=== PATIENT | female | born 1965 | race Caucasian/White ===

== ENCOUNTER 2021-12-07 11:29 | Outpatient (REF) | payer OTHER, SELFPAY ==
--- NOTE | ~2021-12-07 | MM_ITS ---
EXAMINATION: MM SCREENING DIGITAL BREAST TOMOSYNTHESIS, BILATERAL CLINICAL INFORMATION: Screening. Asymptomatic. The lifetime risk of breast cancer based on the Tyrer-Cuzick Model is 13%. COMPARISON: Mammography: 04/14/2015, 04/04/2015, 03/27/2013; left breast ultrasound 04/14/2015 TECHNIQUE: Digital breast tomosynthesis is performed in both the craniocaudal and mediolateral oblique views along with computer-aided detection (CAD). Synthesized 2D images are generated from the tomosynthesis. FINDINGS: There are scattered areas of fibroglandular density (ACR BI-RADS breast composition Category b). There are no significant masses, abnormal calcifications, or other abnormalities. Parenchymal pattern is similar to prior studies. There is no developing density or architectural abnormality. The axilla and skin contours are unremarkable. MM/MM tomosynthesis screening BI IMPRESSION: No mammographic evidence of malignancy. ASSESSMENT: BI-RADS 1: Negative RECOMMENDATION: Routine annual mammography screening. This patient's information was entered into a reminder system with a target due date for their next mammogram.
== END 2021-12-07 11:30 | disposition home or self-care (01) ==
LOC: HO.MAMMO 11:29
PROVIDERS: PCP Internal Medicine; Visit Provider Internal Medicine
DX: Z12.31 Encounter for screening mammogram for malignant neoplasm of breast (principal)
CPT/HCPCS: 77063; 77067

== ENCOUNTER → 2022-04-06 14:45 | Outpatient (BNVA) | payer OTHER, SELFPAY | PROVIDERS: PCP Internal Medicine; Referring Provider Internal Medicine; Visit Provider Nurse Practitioner Family | DX: Z12.11 Encounter for screening for malignant neoplasm of colon (principal); R14.0 Abdominal distension (gaseous) | CPT/HCPCS: 99202 ==

== ENCOUNTER → 2022-04-09 14:29 | Outpatient (BNVA) | payer OTHER, SELFPAY | PROVIDERS: PCP Internal Medicine; Visit Provider Internal Medicine | DX: J44.9 Chronic obstructive pulmonary disease, unspecified (principal); F17.210 Nicotine dependence, cigarettes, uncomplicated | CPT/HCPCS: 99202 ==

== ENCOUNTER 2022-05-04 13:18 | Outpatient (REF) | payer OTHER, SELFPAY ==
--- NOTE | ~2022-05-04 | CT_ITS ---
EXAMINATION: CT CHEST SCREENING CLINICAL INFORMATION: Current smoker. 41 pack year history. COMPARISON: None. TECHNIQUE: Multidetector volumetric CT imaging of the chest is performed without contrast using low dose technique. Additional 2D coronal and sagittal reformatted images and axial 3D maximum intensity projection (MIP) images are generated on the CT workstation. This CT examination was performed using dose optimization techniques as appropriate, variously including the following: *Automated exposure control *Adjustment of mA and/or kV according to patient size (this includes techniques or standardized protocols for targeted exams where dose is matched to indication/reason for exam; i.e. extremities or head) *Use of iterative reconstruction technique DLP: 148 mGy-cm FINDINGS: LUNGS: Mild emphysema. 2 mm right upper lobe nodule axial image 193 series 5 and small clustered nodules for example axial image 211 series 5. This may represent endobronchial secretions. 2 mm left lower lobe nodules axial image 229 series 5 and also probably representing endobronchial secretions 2 mm calcified right middle lobe nodule axial image 291 series 5. Scarring or subsegmental atelectasis in the right middle lobe. No central endobronchial or endotracheal lesion. MEDIASTINUM: The mediastinum is normal. CORONARY ARTERY CALCIFICATION: Mild PLEURA: There is no pleural effusion. No pleural mass or thickening. AXILLA: No lymphadenopathy. UPPER ABDOMEN: Calcifications in the spleen suggestive of old granulomatous disease. OSSEOUS STRUCTURES: Mild degenerative changes of the spine. CT/CT lung screening IMPRESSION: Mild emphysema. Small pulmonary nodules. ASSESSMENT: Lung-RADS category 2: Benign RECOMMENDATION: Annual low-dose chest CT follow-up recommended.
--- NOTE | 2022-05-04 15:02 | PFT_ITS ---
FLOWS: FEV1 50% of predicted at 1.34 L. FVC 73% of predicted at 2.52 L. FEV1 to FVC ratio of 0.53. No bronchodilator response except in small to medium airways. LUNG VOLUMES: Total lung capacity 90% of predicted at 4.55 L. Residual volume 115% of predicted at 2.20 L. Slow vital capacity 74% of predicted at 2.35 L. Expiratory reserve volume 29% of predicted at 0.38 L. Diffusion capacity is moderately decreased, diffusion capacity adjust to being mildly decreased after correction for alveolar ventilation. IMPRESSION: Moderate to severe obstructive ventilatory defect with no bronchodilator response except in small to medium airways. Decreased diffusion capacity suggests emphysema. Orestes Sofia MD AP/MODL / [id number]
== END 2022-05-04 13:19 | disposition home or self-care (01) ==
LOC: HO.CT 13:18
PROVIDERS: PCP Internal Medicine; Visit Provider Physician Assistant Medical
DX: Z12.2 Encounter for screening for malignant neoplasm of respiratory organs (principal); J44.9 Chronic obstructive pulmonary disease, unspecified; F17.210 Nicotine dependence, cigarettes, uncomplicated
CPT/HCPCS: 71271; 94060; 94727; 94729; G0296

== ENCOUNTER 2023-11-12 16:10 | Outpatient (REF) | payer MEDICAID, SELFPAY ==
[2023-11-12 17:55] LABS: MANUAL DIFF FLAG NO
[2023-11-12 18:25] LABS: Basophils Percent Auto 0.7 % (0-2); Eosinophils Absolute Auto 0.3 X10*3/uL (0.0-0.4); Eosinophils Percent Auto 4.9 % (0-4); Hematocrit 42.4 % (37.0-47.0); Imm Gran Abs Auto 0.01 X10*3/uL (0.00-0.03); Imm Gran Pct Auto 0.2 % (0.0-0.4); Lymphocytes Absolute Auto 2.5 X10*3/uL (1.2-4.9); Lymphocytes Percent Auto 42.6 % (20-40); Mean Corpuscular Hemoglobin 29.1 pg (27.0-33.0); Mean Corpuscular Volume 88.1 fL (80.0-98.0); Mean Platelet Volume 10.1 fL (9.4-12.3); Monocytes Absolute Auto 0.8 X10*3/uL (0.1-1.2); Monocytes Percent Auto 12.8 % (2-11); Neutrophils Absolute Auto 2.3 x10*3/uL (2.0-8.3); Neutrophils Percent Auto 38.8 % (45-73); Platelet Count 291 X10*3/uL (160-400); Red Blood Count 4.81 X10*6/uL (4.20-5.50); Red Cell Distribution Width 15.5 % (11.0-16.0); White Blood Count 5.9 X10*3/uL (4.8-10.8)
[2023-11-12 18:54] LABS: Alanine Aminotransferase 34 U/L (0-31); Albumin Level 4.3 g/dL (3.5-5.0); Alkaline Phosphatase 98 U/L (39-117); Anion Gap 12 (12-20); Aspartate Amino Transferase 29 U/L (5-31); Bilirubin Total 0.2 mg/dL (0.0-1.0); Blood Urea Nitrogen 15 mg/dL (9-16); Calcium 9.8 mg/dL (8.4-10.2); Carbon Dioxide 29 mmol/L (22-29); Chloride 103 mmol/L (96-108); Estimated Glomerular Filt Rate > 60; Glucose Random 101 mg/dL (60-115); Potassium 4.2 mmol/L (3.3-5.1); Sodium 140 mmol/L (135-145); Total Protein 7.3 g/dL (6.5-8.0)
[2023-11-12 19:10] LABS: TSH reflex Free T4 36.82 uIU/mL (0.32-4.0); Vitamin D 25-OH Total 38.3 ng/mL (>30)
[2023-11-12 20:20] LABS: Free T4 (Free Thyroxine) 0.77 ng/dL (0.71-1.85)
[2023-11-13 07:40] LABS: Estimated Average Glucose 111 mg/dL; Hemoglobin A1c % 5.5 % (<6.0)
== END 2023-11-12 16:11 | disposition home or self-care (01) ==
LOC: HO.HHCL 16:10
PROVIDERS: Visit Provider Nurse Practitioner Family
DX: E03.9 Hypothyroidism, unspecified (principal); R14.0 Abdominal distension (gaseous)
CPT/HCPCS: 36415; 80053; 82306; 83036; 84439; 84443; 85025

== ENCOUNTER 2023-12-26 09:00 | Outpatient (REF) | payer MEDICAID, SELFPAY ==
--- NOTE | ~2023-12-26 | CT_ITS ---
EXAMINATION: CT LOW-DOSE SCREENING CHEST WITHOUT CONTRAST CLINICAL INFORMATION: Nicotine dependence, cigarettes, uncomplicated. 41 pack years; current smoker; 77 kg; 58-year-old female COMPARISON: Low-dose CT lung screening 05-24. TECHNIQUE: Multidetector volumetric CT imaging of the chest is performed on a Siemens SOMATOM Definition scanner without contrast using low dose technique. Additional 2D coronal and sagittal reformatted images and axial 3D maximum intensity projection (MIP) images are generated on the CT workstation. This CT examination was performed using dose optimization techniques as appropriate, variously including the following: *Automated exposure control *Adjustment of mA and/or kV according to patient size (this includes techniques or standardized protocols for targeted exams where dose is matched to indication/reason for exam; i.e. extremities or head) *Use of iterative reconstruction technique TOTAL EXAM DLP: 46 mGy-cm. Please note, due to [facility] [employer] contractual, systems, and staffing issues, an [facility] radiologist was not available for review and dictation of this case until 02/06/2024. FINDINGS: PULMONARY NODULES: -Once again, there are scattered 2-3 mm pulmonary nodules which are stable. -There are no new or enlarging pulmonary nodules. LUNGS: -There is mild centrilobular emphysema with upper lobe predominance. -Lungs are clear without consolidations or abnormal groundglass opacities. -Mild linear scarring is noted in the medial left lower lobe, lingula, and right middle lobe. -Small right apical bleb. -There is diffuse small airway thickening suggestive of chronic bronchitis. The trachea and central airways are normal. -Previously seen clustered centrilobular nodules have resolved and were inflammatory in nature. -No evidence of interstitial lung disease. -No pleural effusion or mass. MEDIASTINUM: -Normal thyroid. -No abnormal mediastinal or hilar lymphadenopathy. -Aorta is mildly calcified but normal in caliber and course. No aneurysm. -Main pulmonary artery is normal. -Heart size is normal. No pericardial effusion. -There is a small type I hiatus hernia. -Esophagus is otherwise normal. CORONARY ARTERY CALCIFICATION: Moderate to heavy LAD calcification, and mild RCA and circumflex calcifications. CHEST WALL/AXILLA: No abnormal lymphadenopathy or masses. UPPER ABDOMEN: -Numerous granulomata are present in the spleen. -Type I hiatus hernia. -Remainder of the imaged upper abdominal contents are normal allowing for low-dose technique and no contrast. OSSEOUS STRUCTURES: -No suspicious lytic or blastic bone lesions. There are mild spinal degenerative changes. CT/CT lung screening IMPRESSION: 1. Mild centrilobular emphysema. No active lung disease. 2. Stable scattered 2 to 3 mm pulmonary nodules. No suspicious, new, or enlarging pulmonary nodules. Chance of malignancy less than 1%. 3. Diffuse small airway thickening suggesting chronic bronchitis. 4. Small hiatus hernia, type I. 5. Additional ancillary findings as discussed in the body of the report. ASSESSMENT: 1. Lung-RADS Category 2: Benign appearance or behavior of nodules. 2. Lung-RADS Category S: None. RECOMMENDATION: Continued routine annual low-dose CT lung screening in 1 year is recommended. An order for CT CHEST LOW DOSE CANCER SCREENING ([id number]) can be placed. Electronically signed by: Eder Jones MD 02/06/2024 10:07 AM EDT
[2023-12-26 12:04] LABS: Thyroid Stimulating Hormone 2.11 uIU/mL (0.32-4.0)
== END 2023-12-26 09:01 | disposition home or self-care (01) ==
LOC: HO.CT 09:00
PROVIDERS: Nurse Practitioner Family; Visit Provider Physician Assistant Medical
DX: Z12.2 Encounter for screening for malignant neoplasm of respiratory organs (principal); F17.210 Nicotine dependence, cigarettes, uncomplicated; E03.9 Hypothyroidism, unspecified
CPT/HCPCS: 36415; 71271; 84443

== ENCOUNTER → 2023-12-26 09:02 | Outpatient (BNV) | payer MEDICAID, SELFPAY | PROVIDERS: Visit Provider Radiology Diagnostic Radiology | DX: Z12.2 Encounter for screening for malignant neoplasm of respiratory organs (principal); F17.210 Nicotine dependence, cigarettes, uncomplicated; E03.9 Hypothyroidism, unspecified | CPT/HCPCS: 71271 ==

== ENCOUNTER 2024-03-03 11:33 | Outpatient (REF) | payer MEDICAID, SELFPAY ==
[2024-03-03 13:46] LABS: TSH reflex Free T4 0.09 uIU/mL (0.32-4.0)
[2024-03-03 14:32] LABS: Free T4 (Free Thyroxine) 1.08 ng/dL (0.71-1.85)
[2024-03-06 00:38] LABS: HPV mRNA E6/E7 Not Detected (Not Detected)
== END 2024-03-03 11:34 | disposition home or self-care (01) ==
LOC: HO.HHCL 11:33
PROVIDERS: Visit Provider Internal Medicine
DX: Z01.419 Encounter for gynecological examination (general) (routine) without abnormal findings (principal); E03.9 Hypothyroidism, unspecified
CPT/HCPCS: 36415; 84439; 84443; 87624; 88175

== ENCOUNTER 2024-04-27 14:39 | Outpatient (REF) | payer MEDICAID, SELFPAY ==
[2024-04-27 16:59] LABS: TSH reflex Free T4 11.91 uIU/mL (0.32-4.0)
[2024-04-27 18:20] LABS: Free T4 (Free Thyroxine) 1.08 ng/dL (0.71-1.85)
== END 2024-04-27 14:40 | disposition home or self-care (01) ==
LOC: HO.HHCL 14:39
PROVIDERS: Visit Provider Internal Medicine
DX: E03.9 Hypothyroidism, unspecified (principal)
CPT/HCPCS: 36415; 84439; 84443

== ENCOUNTER 2024-06-26 11:50 | Outpatient (REF) | payer MEDICAID, SELFPAY ==
--- OUTSIDE RECORDS SUMMARY | 2024-06-26 13:59 | XMS_ITS | Encounter Summary ---
Author Organization [employer] Address [address] [facility] 7t [place] [address] Care Team Providers Care Glazier Metal Furniture Name Role Phone Zhanna Kinney MD Primary Care Provide r Reason for Visit * Reason Onset Date Comments Med Refill 05/06/2023 Encounter Details Date Type Department Care Team ([facility] st Contact Info) Description 05/06/2023 Telephone [facility] MEDICINE [address] [place], [place] [phone] Zhanna Kinney MD [address] [place], [place] [phone] Med Refill Social History Tobacco Use Types Packs/Day Years Used Date Smoking Tobacco: Every Day Cigarettes Smokeless Tobacco: Never Alcohol Use Standard Drinks/Week Comments Never 0 (1 standard drink = 0.6 oz pur e alcohol) Housing Stability Answer Date Recorded What is your housing situation today? I have michelle pires 03/21/[address] you li ve. Do you have problems with any of the following? None of the above 03/21/2023 Food Insecurity Answer Date Recorded Within the past 12 months, y ou worried that your food would run out before you got money to buy more: Never True 03/21/2023 Within the past 12 months,th e food you bought just didn't last and you didn't have enough money to get more: Never True Transportation Answer Date Recorded In the past 12 months, has l ack of transportation kept you from medical appts, meetings, work or from getting things needed for daily living? No 03/21/2023 Utilities Answer Date Recorded In the past 12 months, has t he electric, gas, oil or water company threatened to shut off services in your home? No 03/21/2023 Comments Unknown Sex and Gender Information Value Date Recorded Sex Assigned at Female 04/02/2022 10:21 AM EDT Legal Sex Female 10:21 AM EDT Gender Identity Female 04/02/2022 10:21 AM EDT Sexual Orientation Straight 04/02/2022 10 :21 AM EDT documented as of this encounter Miscellaneous Notes * Telephone Encounter - Tasha Clemons LPN - 05/06/2023 3:56 PM EST Medication pended to provider. * Telephone Encounter - Edwina Thakkar - 05/06/2023 3:49 PM EST Tc from pt requesting medication refill on cholecalciferol (Vitamin D-3) 50 MCG (1999) capsule [email or web address] [address] documented in this encounter Plan of Treatment Not on file documented as of this encounter Visit Diagnoses Not on filedocumented in this encounter Care Teams [employer] Furniture Relationship Specialty Start Date End Date Zhanna Kinney MD [address] [place] [address] PCP - General Family Medicine 02/12/18 documented as of this encounter
--- OUTSIDE RECORDS SUMMARY | 2024-06-26 13:59 | XMS_ITS | Encounter Summary ---
Author Organization [employer] Address [address] [facility] 7t [place] [address] Care Team Providers Care Conference Center Coordinator Name Role Phone Zhanna Kinney MD Primary Care Provide r Reason for Visit * Reason Onset Date Comments Med Refill 09/10/2023 Encounter Details Date Type Department Care Team ([facility] st Contact Info) Description 09/10/2023 Telephone [facility] MEDICINE [address] [place], [place] [phone] Zhanna Kinney MD [address] [place], [place] [phone] Med Refill Social History Tobacco Use Types [...] Telephone Encounter - Tasha Clemons LPN - 09/10/2023 2:29 PM EDT Medications pended to PCP. * Telephone Encounter - Kay Walls - 09/10/2023 2:11 PM EDT TC from pt requesting medication refill. Medications needing refill : levothyroxine (Synthroid, Levoxyl) 88 MCG tablet cholecalciferol (Vitamin D-3) 50 MCG (1999) capsule albuterol (2.5 MG/3ML) 0.083% nebulizer solution lactulose (Chronulac) 10 GM/15ML solution To be sent to: [facility] documented in this encounter Plan of Treatment Not on file documented as of this encounter Visit Diagnoses Not on filedocumented in this encounter Care Teams Conference Center Coordinator Relationship Specialty Start Date End Date Zhanna Kinney MD [address] [place] [id number] PCP - General Family Medicine 02/12/18 documented as of this encounter
--- OUTSIDE RECORDS SUMMARY | 2024-06-26 13:59 | XMS_ITS | Encounter Summary ---
Author Organization [employer] Address [address] [facility] 7t [place] [address] Care Team Providers Care As400 Consultant Name Role Phone Zhanna Kinney MD Primary Care Provide r Reason for Visit * Reason Comments Med Refill Encounter Details Date Type Department Care Team (Late st Contact Info) Description 06/18/2024 Refill [facility] MEDICINE [address] [place], [place] [phone] Zhanna Kinney MD [address] [place], [place] [phone] Moderate chronic obstructive pulmonary disease (CMS/HCC) Social History Tobacco Use Types Packs/Day Years Used Date Smoking Tobacco: Every Day Cigarettes Smokeless Tobacco: Never Alcohol Use Standard Drinks/Week Comments Yes 0 (1 standard drink = 0.6 oz pur e alcohol) 2x week Housing Stability Answer Date Recorded What is your housing situation today? Not on jose e 11/12/[address] you li ve. Do you have problems with any of the following? Mold 11/12/2023 Food Insecurity Answer Date Recorded Within the past 12 months, y ou worried that your food would run out before you got money to buy more: Never True 11/12/2023 Within the past 12 months,th e food you bought just didn't last and you didn't have enough money to get more: Never True 04/2024 Transportation Answer Date Recorded In the past 12 months, has l ack of transportation kept you from medical appts, meetings, work or from getting things needed for daily living? No 11/12/2023 Utilities Answer Date Recorded In the past 12 months, has t he electric, gas, oil or water [employer] threatened to shut off services in your home? No 11/12/2023 Comments No Sex and Gender Information Value Date Recorded Sex Assigned at Female 04/02/2022 10:21 AM EDT Legal Sex Female 10:21 AM EDT Gender Identity Female 04/02/2022 10:21 AM EDT Sexual Orientation Straight 04/02/2022 10 :21 AM EDT documented as of this encounter Plan of Treatment Not on file documented as of this encounter Visit Diagnoses Diagnosis Moderate chronic obstructive pulmonary disease (CMS/HCC) Chronic airway obstruction, not elsewhere classified documented in this encounter Care Teams As400 Consultant Relationship Specialty Start Date End Date Zhanna Kinney MD [address] [place] [id number] PCP - General Family Medicine 02/12/18 documented as of this encounter
--- OUTSIDE RECORDS SUMMARY | 2024-06-26 14:00 | XMS_ITS | Encounter Summary ---
Author Organization [employer] Address [address] [place] [address] [place] [address] Care Team Providers Care Casing Man Name Role Phone Zhanna Kinney MD Primary Care Provide r Reason for Visit * Reason Comments Med Refill Encounter Details Date Type Department Care Team (Late st Contact Info) Description 12/10/2022 Refill [facility] MEDICINE [address] [place], [place] [phone] Zhanna Kinney MD [address] [place], [place] [phone] Social History Tobacco Use Types Packs/Day Years Used Date Smoking Tobacco: Every Day Cigarettes Smokeless Tobacco: Never Alcohol Use Standard Drinks/Week Comments Never 0 (1 standard drink = 0.6 oz pur e alcohol) Comments Unknown Sex and Gender Information Value [...] on filedocumented in this encounter Care Teams Casing Man Relationship Specialty Start Date End Date Zhanna Kinney MD [address] [place], [place] [phone] PCP - General Family Medicine 02/12/18 documented as of this encounter
--- OUTSIDE RECORDS SUMMARY | 2024-06-26 14:00 | XMS_ITS | Encounter Summary ---
Author Organization [employer] Address [address] [place] [address] 7[address] [place] [address] Care Team Providers Care Technical Producer Name Role Phone Zhanna Kinney MD Primary Care Provide r Reason for Visit * Reason Comments Med Refill Encounter Details Date Type Department Care Team (Late st Contact Info) Description 12/06/2022 Refill [facility] MEDICINE [address] [place], [place] [phone] Zhanna Kinney MD [address] [place], [place] [phone] Social History Tobacco Use Types Packs/Day Years [...] on filedocumented in this encounter Care Teams Technical Producer Relationship Specialty Start Date End Date Zhanna Kinney MD [address] [place], [place] [phone] PCP - General Family Medicine 02/12/18 documented as of this encounter
--- OUTSIDE RECORDS SUMMARY | 2024-06-26 14:00 | XMS_ITS | Encounter Summary ---
Author Organization [employer] Address [address] [facility] 7t [place] [address] Care Team Providers Care Director Of Design Name Role Phone Zhanna Kinney MD Primary Care Provide r Reason for Visit * Reason Onset Date Comments Referral 05/28/2024 Encounter Details Date Type Department Care Team ([facility] st Contact Info) Description 05/28/2024 Telephone [facility] MEDICINE [address] [place], [place] [phone] Zhanna Kinney MD [address] [place], [place] [phone] Referral Social History Tobacco Use Types Packs/Day Years [...] encounter Miscellaneous Notes * Telephone Encounter - Tanika Rowe RN - 06/04/2024 3:12 PM EST TC placed to patient [phone] in regards to below message. Patient verbalized understanding anddid not have any further questions. Patient to f/u PRN. * Telephone Encounter - Tanika Rowe RN - 06/04/2024 1:07 PM EST TC placed to patient [phone] in regards to below message. Patient verbalized understanding. Patient reports she was also referred to a photo lab manager in the [place] location but would like that referral to be switched to the [facility] location as well. Please review. Thank you! * Telephone Encounter - Abena Roland - 05/29/2024 10:36 AM EST Tc from pt stating they attempted to contact Dr. Ramírez - [place] office however they are permanently closed and will need to be referred else where, preferably ( [facility] area ). Please contact at [phone] * Telephone Encounter - Tanika Rowe RN - 05/28/2024 4:36 PM EST TC placed to patient [phone] to inform patient of below message. Patient verbalized understanding. Patient to f/u PRN. * Telephone Encounter - Leann Rashid - 05/28/2024 3:22 PM EST Tc from pt requesting a referral to visit Thyroid specialist as she inform pcp inform her she will be sent to one. No preference to any locations. documented in this encounter Plan of Treatment Not on file documented as of this encounter Visit Diagnoses Not on filedocumented in this encounter Care Teams Director Of Design Relationship Specialty Start Date End Date Zhanna Kinney MD [address] [place] [address] PCP - General Family Medicine 02/12/18 documented as of this encounter
--- OUTSIDE RECORDS SUMMARY | 2024-06-26 14:00 | XMS_ITS | Encounter Summary ---
Author Organization [employer] Address [address] [facility] 7t [place] [address] Care Team Providers Care Sand Cutter Name Role Phone Zhanna Kinney MD Primary Care Provide r Encounter Details Date Type Department Care Team (Late st Contact Info) Description 01/01/2023 Orders Only [facility] MEDICINE [address] [place], [place] [phone] Lupe Benites LPN Social History Tobacco Use Types Packs/Day Years [...] on file documented as of this encounter Procedures Procedure Name Priority Date/Time Associated Diagnosis Comments T4, FREE Routine 11/12/2023 4:11 PM EDT documented in this encounter Results * T4, Free (11/12/2023 4:11 PM EDT) Free T4 (Free Thyroxine) 0.77 0.71 - 1.85 ng/dL [facility] 11/12/2023 4:11 PM EDT 11/12/2023 5:50 PM EDT us Ileana Cevallos [employer] BLOOD ORDERABLES Final Resul t [facility] [address] [place] [phone] documented in this encounter Visit Diagnoses Not on filedocumented in this encounter Care Teams Sand Cutter Relationship Specialty Start Date End Date Zhanna Kinney MD [address] [place] [address] PCP - General Family Medicine 02/12/18 documented as of this encounter
--- OUTSIDE RECORDS SUMMARY | 2024-06-26 14:00 | XMS_ITS | Encounter Summary ---
Author Organization [employer] Address [address] [place] [address] [address]t [place] [address] Care Team Providers Care Cashier Credit Name Role Phone Zhanna Kinney MD Primary Care Provide r Reason for Visit * Reason Comments Med Refill Encounter Details Date Type Department Care Team (Late st Contact Info) Description 03/05/2023 Refill [facility] MEDICINE [address] [place], [place] [phone] Zhanna Kinney MD [address] [place], [place] [phone] Social History Tobacco Use Types Packs/Day Years [...] on filedocumented in this encounter Care Teams Cashier Credit Relationship Specialty Start Date End Date Zhanna Kinney MD [address] [place], [place] [phone] PCP - General Family Medicine 02/12/18 documented as of this encounter
--- OUTSIDE RECORDS SUMMARY | 2024-06-26 14:00 | XMS_ITS | Encounter Summary ---
Author Organization [employer] Address [address] [facility] 7t [place] [address] Care Team Providers Care Cycle Repairer Name Role Phone Nighat Kinney MD Primary Care Provide r Reason for Visit * Reason Onset Date Comments Results 05/04/2024 Encounter Details Date Type Department Care Team ([facility] st Contact Info) Description 05/04/2024 Telephone [facility] MEDICINE [address] [place], [place] [phone] Nighat Kinney MD [address] [place], [place] [phone] Results Social History Tobacco Use Types Packs/Day Years [...] Telephone Encounter - Tanika Rowe RN - 06/16/2024 9:46 AM EST TC placed to patient [phone] to remind patient to return to the lab for TSH BW. Patient verbalized understanding and reports she will come to the lab tomorrow. Patient to be contacted with results when available. Patient to f/u PRN. * Telephone Encounter - Quiana Gomes RN - 05/05/2024 10:25 AM EST Please let patient know I reviewed her labs her TSH is high again, I went up on her levothyroxine again and I put a referral in for endocrinology, she should repeat her TSH in 6 weeks TC placed to pt to discuss the message above pt will parts picker new dosage of medication today. 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 Will send message to PA specialists as referral is still pending Due to pt having HSN she will have to pay out of pocket, Pt will have to call dr. Joiner [phone] and see what the out of pocket expense would be. Canceling referral, thank you. TC placed to pt she will come in to speak to insurance enrollment to change insurance as she will not drive to [place] for appointments will send to PCP as an FYI pt to contact [facility] when insurance is changed to proceed with new referral. * Telephone Encounter - Jasmin Espinosa RN - 05/04/2024 4:40 PM EST Please see below patient called for lab results patients TSH is now 11.91. Please review and advise. * Addendum Note - Nighat Bonilla MD - 05/04/2024 4:36 PM ESTAddended by: NIGHAT TAYLOR on: 05/04/2024 04:36 PM Modules accepted: Orders * Telephone Encounter - Tiago Hurtado RN - 05/04/2024 11:23 AM EST Please see below patient called for lab results patients TSH is now 11.91. Please review and advise. * Telephone Encounter - Lam Velázquez - 05/04/2024 9:40 AM EST TC from pt requesting call back regarding Results. Type of results: Labs Date when done: 04/27/24 Facility: [facility] Labs documented in this encounter Plan of Treatment Not on file documented as of this encounter Visit Diagnoses Diagnosis Acquired hypothyroidism- Primary Unspecified hypothyroidism documented in this encounter Care Teams Cycle Repairer Relationship Specialty Start Date End Date Nighat Kinney MD [address] [place] [address] PCP - General Family Medicine 02/12/18 documented as of this encounter
--- OUTSIDE RECORDS SUMMARY | 2024-06-26 14:00 | XMS_ITS | Encounter Summary ---
Author Organization [employer] Address [address] [place] [address] 7[address] [place] [address] Care Team Providers Care Store Product Demonstrator Name Role Phone Zhanna Kinney MD Primary Care Provide r Reason for Visit * Reason Onset Date Comments Med Refill 10/09/2022 Encounter Details Date Type Department Care Team (Late st Contact Info) Description 10/09/2022 Telephone [facility] MEDICINE [address] [place], [place] [phone] Zhanna Kinney MD [address], [place] [phone] Med Refill Social History Tobacco Use Types [...] Telephone Encounter - Tasha Clemons LPN - 10/09/2022 2:06 PM EDT Medication pended to PCP awaiting approval. * Telephone Encounter - Kay Walls - 10/09/2022 1:51 PM EDT Tc from pt requesting med refill for medication levothyroxine (Synthroid, Levoxyl) 88 MCG tablet. documented in this encounter Plan of Treatment Not on file documented as of this encounter Visit Diagnoses Not on filedocumented in this encounter Care Teams Store Product Demonstrator Relationship Specialty Start Date End Date Zhanna Kinney MD [address] [place] [phone] PCP - General Family Medicine 02/12/18 documented as of this encounter
--- OUTSIDE RECORDS SUMMARY | 2024-06-26 14:00 | XMS_ITS | Clinical Summary ---
Author Organization [employer] Address [address] [place] [address] 7[address] [place] [address] Care Team Providers Care Etiology Teacher Name Role Phone Zhanna Kinney MD Primary Care Provide r Allergies No known active allergies Medications buPROPion SR (Wellbutrin SR) 150 MG 12 hr tablet 022 Active Fluticasone-Salme terol 500-50 MCG/ACT aerosol powder 022 Active azithromycin (Zithromax Z-Sagar) 250 MG tabletIndications :COPD exacerbation (CMS/HCC) Take 2 tablets (500 mg) in a single loading dose on day 1, followed by 250 mg once daily on days 2 to 5 6 tablet 023 Active loratadine (Claritin) 10 MG tabletIndications :Allergy, sequela Take 1 tablet (10 mg) by mouth in the morning. 90 tablet 023 Active lactulose (Enulose) 10 GM/15ML solution oral solution TAKE 15 ML BY MOUTH ONCE DAILY FOR CONSTIPATION 450 mL 1 023 Active nicotine (Nicoderm CQ) 21 MG/24HR patchIndications: Nicotine dependence, uncomplicated, unspecified nicotine product type Place 1 patch on the skin 1 (one) time each day at the same time. 30 patch 024 Active fluticasone furoate (Arnuity Ellipta) 100 MCG/ACT inhalerIndication s:Severe persistent asthma, unspecified whether complicated Inhale 1 puff Once per day. Rinse mouth with water after use to reduce aftertaste and incidence of candidiasis. Do not swallow. 1 each 024 2024 Active albuterol (Ventolin HFA) 108 (90 Base) MCG/ACT inhalerIndication s:Moderate chronic obstructive pulmonary disease (CMS/HCC) INHALE 2 PUFFS BY MOUTH EVERY 6 HOURS NEEDED FOR WHEEZING 18 g 3 024 Active ipratropium-albut sandro (Combivent Respimat) 20-100 MCG/ACT inhalerIndication s:Moderate chronic obstructive pulmonary disease (CMS/HCC) Inhale 1 puff in the morning, at noon, in the evening, and at bedtime. 4 g 5 024 Active cholecalciferol VITAMIN D (Vitamin D-3) 50 MCG (2000 UT) capsule TAKE ONE CAPSULE BY MOUTH ONCE DAILY IN THE MORNING 90 capsule 1 024 Active lactulose (Chronulac) 10 GM/15ML solution TAKE 15 ML BY MOUTH ONCE DAILY FOR CONSTIPATION 450 mL 1 024 Active tiotropium (Spiriva HandiHaler) 18 MCG inhalation capsule INHALE ONE (1) CAPSULE VIA HANDIHALER FOR INHALTION ONCE A DAY 30 capsule 5 024 Active cetirizine (ZyrTEC) 10 MG tabletIndications :Allergic reaction, initial encounter TAKE 1 TABLET (10 MG) BY MOUTH ONCE PER DAY. 90 tablet 024 2024 Active levothyroxine (Synthroid, Levoxyl) 100 MCG tabletIndications :Acquired hypothyroidism TAKE 1 TABLET BY MOUTH EVERY MORNING BEFORE BREAKFAST 90 tablet 024 Active fluticasone furoate (Arnuity Ellipta) 200 MCG/ACT inhalerIndication s:Moderate chronic obstructive pulmonary disease (CMS/HCC) INHALE 1 PUFF BY MOUTH ONCE A DAY. RINSE MOUTH WITH WATER AFTER USE TO REDUCE AFTERTASTE AND INCIDENCE OF CANDIDIASIS. DO NOT SWALLOW. 1 each 3 025 Active albuterol (2.5 MG/3ML) 0.083% nebulizer solutionIndicatio ns:Moderate chronic obstructive pulmonary disease (CMS/HCC) INHALE ONE (1) AMPULE (3ML) USING A NEBULIZER EVERY 8 HOURS IF NEEDED FOR WHEEZING 90 mL 3 025 Active fluticasone furoate (Arnuity Ellipta) 200 MCG/ACT inhalerIndication s:Moderate chronic obstructive pulmonary disease (CMS/HCC) INHALE 1 PUFF BY MOUTH ONCE A DAY. RINSE MOUTH WITH WATER AFTER USE TO REDUCE AFTERTASTE AND INCIDENCE OF CANDIDIASIS. DO NOT SWALLOW. 30 each 3 024 2024 Discontinued albuterol (2.5 MG/3ML) 0.083% nebulizer solutionIndicatio ns:Moderate chronic obstructive pulmonary disease (CMS/HCC) INHALE ONE (1) AMPULE (3ML) USING A NEBULIZER EVERY 8 HOURS IF NEEDED FOR WHEEZING 90 mL 3 024 2024 Discontinued Active Problems Problem Noted Date Diagnosed Date Encounter for cervical Pap smear with pelvic exa m 03/03/2024 Assessment & Plan (03/03/2024 12:22 PM EDT): PAP and pelvic exam done, patient will be contacted with results Allergic reaction 01/03/2024 Colon cancer screening 01/03/2024 Vitamin D deficiency 11/12/2023 Bloating 11/12/2023 Facial swelling 11/12/2023 Severe persistent asthma 11/12/2023 Assessment & Plan (11/17/2023 2:07 PM EDT): Inhaler rx updated, Acquired hypothyroidism 06/06/2022 Assessment & Plan (03/03/2024 12:22 PM EDT): TSH will be check patient will be contacted with results Assessment & Plan (11/17/2023 2:07 PM EDT): Symptoms consistent with hypothyroid, check labs as ordered below Familial cancer of breast 03/04/2015 Moderate chronic obstructive pulmonary disease 1 Nicotine dependence 03/04/2015 Assessment & Plan (11/17/2023 2:07 PM EDT): Plan to trial nicotine patch Encounters Date Type Department Care Team Description 06/18/2024 Refill [facility] MEDICINE [address] [place] [address] Zhanna Kinney MD Moderate chronic obstructive pulmonary disease (CMS/HCC) 05/28/2024 Telephone [facility] MEDICINE [address] [place] [address] Zhanna Kinney MD Referral 05/18/2024 Telephone [facility] MEDICINE [address] [place] [address] Zhanna Kinney MD Referral 05/18/2024 Refill [facility] MEDICINE [address] [place] [address] Zhanna Kinney MD Acquired hypothyroidism 05/05/2024 Refill [facility] MED[facility]INE [address] [place] [address] Zhanna Kinney MD Allergic reaction, initial encounter 05/04/2024 Telephone [facility] MEDICINE [address] [place] [address] Jasmin Espinosa RN 05/04/2024 Orders Only [facility] MEDICINE [address] [place] [address] Zhanna Kinney MD Acquired hypothyroidism (Primary Dx) 05/04/2024 Telephone [facility] MEDICINE [address] [place] [address] Zhanna Kinney MD Results 04/29/2024 Orders Only [facility] MEDICINE [address] [place] [address] Zhanna Kinney MD Acquired hypothyroidism (Primary Dx) 04/29/2024 Orders Only [facility] MEDICINE [address] [place] [address] Zhanna Kinney MD 04/27/2024 Orders Only [facility] MED[facility]INE [address] [place] [address] Zhanna Kinney MD 04/24/2024 Refill [facility] MED[facility]INE [address] [place] [address] Zhanna Kinney MD 03/27/2024 Refill [facility] [address] [place] [address] Zhanna Kinney MD from Last 3 Months Immunizations Name Administration Dates Next Due Pneumococcal Conjugate PCV 20 01/03/2024 TD (adult), 2 Lf tetanus tox oid, preservative free, adsorbed 06/03/2002 Social History Tobacco Use Types Packs/Day Years Used Date Smoking Tobacco: Every Day Cigarettes Smokeless Tobacco: Never Tobacco Cessation:Ready to Q uit: Not Asked; Counseling Given: Not Answered Alcohol Use Standard Drinks/Week Comments Yes 0 [...] t he electric, gas, oil or water [employer] threatened to shut off services in your home? No 11/12/2023 Comments No Sex and Gender Information Value Date Recorded Sex Assigned at Female 04/02/2022 10:21 AM EDT Legal Sex Female 10:21 AM EDT Gender Identity Female 04/02/2022 10:21 AM EDT Sexual Orientation Straight 04/02/2022 10 :21 AM EDT Last Filed Vital Signs Vital Sign Reading Time Taken Comments Blood Pressure 128/82 03/03/2024 10:36 AM EDT Pulse 86 03/03/2024 10:36 AM EDT Temperature 36 ??C (96.8 ??F) 03/03/2024 10:36 AM EDT Respiratory Rate 20 01/03/2024 9:36 AM EDT Oxygen Saturation 97% 03/03/2024 10:36 AM EDT Inhaled Oxygen Concentration - - Weight 76.4 kg (168 lb 6 oz) 03/03/2024 10:36 AM EDT Height 162.6 cm (5' 4 ) 03/03/2024 10:36 AM EDT Body Mass Index 28.9 03/03/2024 10:36 AM EDT Plan of Treatment Health Maintenance Due Date Last Done Comments CT Colonography 1966 Colonoscopy 1966 Depression Screening 1966 FIT 1966 FOBT 1966 Sigmoidoscopy 1966 Alcohol/Substance Use Screening 1978 Hepatitis B Vaccines (1 of 3 - 19+ 3-dose series) 1985 DTaP/Tdap/Td Vaccines (1 - Tdap) 06/04/2002 06/03/2002 Zoster Vaccines (1 of 2) 2016 SDOH Screening 06/07/2023 06/07/2022 COVID-19 Vaccine (1 - 2023-2 5 season) 2024 Influenza Vaccine (#1) 2024 Tobacco Screening 03/03/2025 03/03/2024 Lipid Panel 11/30/2026 11/30/2021, 07/29/2020 Colorectal Cancer Screening 04/08/2027 FIT DNA/Cologuard 04/08/2027 04/08/2024 Cervical Cancer Screening 03/03/2029 HPV/Cotest 03/03/2029 03/03/2024 Pap Smear 03/03/2029 03/03/2024 RSV Patients and Patients Aged 60 years or older (1 - 1-dose 75+ series) 2041 HIV Screening Completed 07/29/2020 Hepatitis C Screening Completed 07/29/2020 Pneumococcal Vaccine: Pediatrics (0 to 5 Years) and At-Risk Patients (6 to 64 Years) Completed 01/03/2024 HIB Vaccines Aged Out No longer eligi ble based on patient's age to complete this topic HPV Vaccines Aged Out No longer eligi ble based on patient's age to complete this topic Hepatitis A Vaccines Aged Out No long er eligible based on patient's age to complete this topic IPV Vaccines Aged Out No longer eligi ble based on patient's age to complete this topic Meningococcal Vaccine Aged Out No james mónica eligible based on patient's age to complete this topic RSV under 20 months Aged Out No longe r eligible based on patient's age to complete this topic Rotavirus Vaccines Aged Out No longer eligible based on patient's age to complete this topic Procedures Procedure Name Priority Date/Time Associated Diagnosis Comments T4, FREE Routine 04/27/2024 12:00 AM EST TSH W/REFLEX TO FT4 Routine 04/27/2024 1 2:00 AM EST Acquired hypothyroidism LAB COLOGUARD?? COLON CANCER SCREEN Routine 04/08/2024 8:24 AM EST Colon cancer screening THINPREP IMAGING PAP AND HPV MRNA E6/E7 Routine 03/03/2024 12:00 AM EDT LIPID PANEL, STANDARD Routine 11/30/2021 10:56 AM EDT ZZZ HISTORICAL HEPATITIS C AB W/REFL TO HCV RNA, QN, PCR Routine 07/29/2020 8:41 AM EST HIV 1/2 ANTIGEN/ANTIBODY, FOURTH GENERATION W/RFL Routine 07/29/2020 8:41 AM EST from Last 3 Months or Most Recently Relevant to Health Maintenance Results * (ABNORMAL) TSH W/Reflex to FT4 (04/27/2024 12:00 AM EST) TSH reflex Free T4 11.91(H) 0.32 - 4.0 uIU/mL [facility] Blood Venous blood specimen / Unknown 04/27/2024 04/27/2024 us Zhanna Bonilla MD LAB BLOOD ORDERABLES Final Result [facility] [address] [place] [phone] * T4, Free (04/27/2024 12:00 AM EST) Free T4 (Free Thyroxine) 1.08 0.71 - 1.85 ng/dL [facility] 04/27/2024 04/27/2024 Zhanna Bonilal MD LAB BLOOD ORDERABLES Final Result [facility] [address] [place] [address] [phone] * Cologuard?? colon cancer screening (04/08/2024 8:24 AM EST) Pathologist [facility] Cologuard Result Negative Negative 04/21/20 5:47 PM EST [employer] (CLIA #:[id number]) Comment: NEGATIVE TEST RESULT. A negative Cologuard result indicates a low likelihood that a colorectal cancer (CRC) or advanced adenoma (adenomatous polyps with more advanced pre-malignant features) ??is present. The chance that a person with a negative Cologuard test has a colorectal cancer is less than 1 in 1500 (negative predictive value >99.9%) or has an ??advanced adenoma is less than ??5.3% (negative predictive value 94.7%). These data are based on a prospective cross-sectional study of 10,000 individuals at average risk for colorectal cancer who were screened with both Cologuard and colonoscopy. (Ava Banda. et al, N Engl J Med 2014;370(14):1286- 1297) The normal value (reference range) for this assay is negative. COLOGUARD RE-SCREENING RECOMMENDATION: Periodic colorectal cancer screening is an important part of preventive healthcare for asymptomatic individuals at average risk for colorectal cancer. ??Following a negative Cologuard result, the [place] Cancer Society and U.S. Multi-Society Task Force screening guidelines recommend a Cologuard re-screening interval of 3 years. References: [place] Cancer Society Guideline for Colorectal Cancer Screening: https://www.cancer.org/cancer/uppzs-efnsgz-ituvqb/aypsydlxf-xfavmmbph-mpnilij/ac s-rec ommendations.html.; Honorio SMITH, Fabiana WARREN, Ellis EscobarK, Colorectal Cancer Screening: Recommendations for Physicians and Patients from the U.S. Multi-Society Task Force on Colorectal Cancer Screening , Am J Gastroenterology 2017; 112:3935-2623. TEST DESCRIPTION: Composite algorithmic analysis of stool DNA-biomarkers with hemoglobin immunoassay. ?? Quantitative values of individual biomarkers are not reportable and are not associated with individual biomarker result reference ranges. Cologuard is intended for colorectal cancer screening of adults of either sex, 45 years or older, who are at average-risk for colorectal cancer (CRC). Cologuard has been approved for use by the U.S. FDA. The performance of Cologuard was established in a cross sectional study of average-risk adults aged 50-84. Cologuard performance in patients ages 45 to 49 years was estimated by sub-group analysis of near-age groups. Colonoscopies performed for a positive result may find as the most clinically significant lesion: colorectal cancer [4.0%], advanced adenoma (including sessile serrated polyps greater than or equal to 1cm diameter) [20%] or non- advanced adenoma [31%]; or no colorectal neoplasia [45%]. These estimates are derived from a prospective cross-sectional screening study of 10,000 individuals at average risk for colorectal cancer who were screened with both Cologuard and colonoscopy. (Ava Felipe et al, N Engl J Med 2014;370(14):4077-2123.) Cologuard may produce a false negative or false positive result (no colorectal cancer or precancerous polyp present at colonoscopy follow up). A negative Cologuard test result does not guarantee the absence of CRC or advanced adenoma (pre-cancer). The current Cologuard screening interval is every 3 years. ([place] Cancer Society and U.S. Multi-Society Task Force). Cologuard performance data in a 10,000 patient pivotal study using colonoscopy as the reference method can be accessed at the following location: www.ZIMPERIUM/results. Additional description of the Cologuard test process, warnings and precautions can be found at www.[employer].com. Stool specimen (specimen) 04/08/2024 8:24 AM EST 04/10/2024 10:38 AM EST Zhanna Bonilla MD LAB MOLECULAR DIAGNOS TICS ORDERABLES Final Result [employer] (CLIA #:[id number]) [place] [address], * ThinPrep Imaging Pap and HPV mRNA E6/E7 (03/03/2024 12:00 AM EDT) HPV nRNA E6/E7 Not Detected Not Detected [facility] Comment:Methodology: Transcr iption-Mediated AmplificationThis assay detects E6/E7 viral messenger RNA (mRNA) from 14high-risk HPV types (16,18,31,33,35,39,45,51,52,56,58,59,66,68).Cervical sources are required for HPV testing.If a vaginal source from a patient who has had atotal hysterectomy with removal of cervix wassubmitted, please contact the testing laboratoryfor alternative testing options.For additional information, please refer tohttp://education.Discrete Sport/faq/CAU142o9(This link if provided for information/educational purposes only.)THIS TEST WAS PERFORMED AT:[facility] [address] [id number] SNOW MD SOURCE: SEE NOTE [facility] Comment:None given Report Status: [facility] Clinical Information: SEE NOTE [facility] Comment:None given LMP: SEE NOTE [facility] Comment:NONE GIVEN Prev. PAP: SEE NOTE [facility] Comment:NONE GIVEN Prev. BX: SEE NOTE [facility] Comment:NONE GIVEN Statement Of Adequacy: SEE NOTE [facility] Comment:Satisfactory for oliver luation.Endocervical/transformation zone component absent. General Categorization: [facility] Interpretation/Result: SEE NOTE [facility] Comment:Cytology Results: Ne gative for intraepitheliallesion or malignancy. Cytology Comment SEE NOTE [facility] Comment:This Pap test has be en evaluated with computerassisted technology. Balling Head Tender: SEE NOTE [facility] Comment:GSG, CT(ASCP)CT scre ening location: [place] [address] Review Balling Head Tender: [facility] Pathologist [facility] PAP Infection [facility] See Note SEE NOTE [facility] Comment:EXPLANATORY NOTE:The Pap is a screening test for cervical cancer. It isnot a diagnostic test and is subject to false negativeand false positive results. It is most reliable when asatisfactory sample, regularly obtained, is submittedwith relevant clinical findings and history, and whenthe Pap result is evaluated along with historic andcurrent clinical information. 03/03/2024 03/03/2024 Narrative [facility] - 03/06/2024 1:54 PM EDT SEE SCANNED RESULTS IN EMR us Zhanna Bonilla MD LAB PATHOLOGY ORDERAB LES Final Result [facility] [address] [place] [phone] [phone] * (ABNORMAL) LIPID PANEL, STANDARD (11/30/2021 10:56 AM EDT) Chol/HDLC Ratio 2.9 <5.0 (calc) [facility] Cholesterol, Total 247(H) <200 mg/dL [facility] HDL Cholesterol 86 > OR = 50 mg/dL [facility] LDL Cholesterol 146(H) mg/dL (calc) [facility] Comment: Reference range: <100 ?? Desirable range <100 mg/dL for primary prevention; ?? <70 mg/dL for patients with CHD or diabetic patients ?? with > or = 2 CHD risk factors. ?? LDL-C is now calculated using the Elmer ?? calculation, which is a validated novel method providing ?? better accuracy than the Friedewald equation in the ?? estimation of LDL-C. ?? Doron FLORES et al. ANGEL LUIS. 2013;310(19): 4062-7476 ?? (http://education.Kiwilogic.Fabric Engine/faq/HEH693) Non-HDL Cholesterol 161(H) <130 mg/dL (calc) [facility] Comment: For patients with diabetes plus 1 major ASCVD risk ?? factor, treating to a non-HDL-C goal of <100 mg/dL ?? (LDL-C of <70 mg/dL) is considered a therapeutic ?? option. Triglycerides 62 <150 mg/dL [facility] 11/30/2021 10:5 6 AM EDT Zhanna Bonilla MD LAB BLOOD ORDERABLES Final Result Performing Organization Address [facility] Phone Number [facility] [address] [place] [address], * HEPATITIS C AB W/REFL TO HCV RNA, QN, PCR (07/29/2020 8:41 AM EST) HEPATITIS C ANTIBODY NON-REACT ZOFIA NON-REACT ZOFIA [facility] INDEX 0.01 <1.00 [facility] Comment: ?? HCV antibody was non-reactive. There is no laboratory ?? evidence of HCV infection. ?? In most cases, no further action is required. However, if recent HCV exposure is suspected, a test for HCV RNA (test code 45037) is suggested. ?? For additional information please refer to http://Daptiv.Discrete Sport/faq/LVI26w7 (This link is being provided for informational/ educational purposes only.) ?? 07/29/2020 8:41 AM EST Zhanna Bonilla MD HISTORICAL/NON ORDERA BLE LABS Final Result Performing Organization Address [facility] Phone Number [facility] [address] [place] [address], * HIV 1/2 ANTIGEN/ANTIBODY,FOURTH GENERATION W/RFL (07/29/2020 8:41 AM EST) HIV-1/2 ANTIGEN AND ANTIBODIES, 4TH GENERATION W/ REFLEX NON-REACT ZOFIA NON-REACT ZOFIA [facility] Comment: HIV-1 antigen and HIV-1/HIV-2 antibodies were not detected. There is no laboratory evidence of HIV infection. ?? PLEASE NOTE: This information has been disclosed to you from records whose confidentiality may be protected by state law. ??If your state requires such protection, then the state law prohibits you from making any further disclosure of the information without the specific written consent of the person to whom it pertains, or as otherwise permitted by law. A general authorization for the release of medical or other information is NOT sufficient for this purpose. ? For additional information please refer to http://education.Hole 19.Fabric Engine/faq/MYH996 (This link is being provided for informational/ educational purposes only.) ? The performance of this assay has not been clinically validated in patients less than 2 years old. ?? 07/29/2020 8:41 AM EST Zhanna Bonilla MD LAB BLOOD ORDERABLES Final Result [facility] [address] from Last 3 Months or Most Recently Relevant to Health Maintenance Insurance [address] [place] [address] C3 HS PARTIAL Care Teams Etiology Teacher Relationship Specialty Start Date End Date Zhanna Kinney MD [address] [place] [phone] PCP - General Family Medicine 02/12/18
[2024-06-26 14:20] LABS: TSH reflex Free T4 2.11 uIU/mL (0.32-4.0)
== END 2024-06-26 11:51 | disposition home or self-care (01) ==
LOC: HO.HHCL 11:50
PROVIDERS: Visit Provider Internal Medicine
DX: E03.9 Hypothyroidism, unspecified (principal)
CPT/HCPCS: 36415; 84443

== ENCOUNTER 2024-10-16 10:40 | Outpatient (REF) | payer MEDICAID, SELFPAY ==
--- OUTSIDE RECORDS SUMMARY | 2024-10-16 11:13 | XMS_ITS | Encounter Summary ---
Author Organization [employer] Address [address] [facility] [address]t [place] [address] Care Team Providers Care Senior National Account Manager Name Role Phone Zhanna Kinney MD Primary Care Provide r Encounter Details Date Type Department Care Team (Late st Contact Info) Description 01/01/2023 Orders Only [facility] MEDICINE [address] [place] [address] Lupe Benites LPN Social History Tobacco Use [...] (Free Thyroxine) 0.77 0.71 - 1.85 ng/dL [facility] 11/12/2023 4:11 PM EDT 11/12/2023 5:50 PM EDT us Ileana Graef SENIOR MANAGER LAB BLOOD ORDERABLES Final Resul t [facility] [address] [place] [address] [phone] documented in this encounter Visit Diagnoses Not on filedocumented in this encounter Care Teams Senior National Account Manager Relationship Specialty Start Date End Date Zhanna Kinney MD [address] [place] [phone] PCP - General Family Medicine 02/12/18 documented as of this encounter
--- OUTSIDE RECORDS SUMMARY | 2024-10-16 11:13 | XMS_ITS | Encounter Summary ---
Author Organization [employer] Address [address] [facility] [address]t [place] [address] Care Team Providers Care Expander Machine Operator Name Role Phone Zhanna Kinney MD Primary Care Provide r Reason for Visit * Reason Comments Med Refill Encounter Details Date Type Department Care Team ([facility] st Contact Info) Description 12/06/2022 Refill [facility] [address] [place], [place] [phone] Zhanna Kinney MD [address] [place], [place] [phone] Social History Tobacco Use Types Packs/Day Years [...] on filedocumented in this encounter Care Teams Expander Machine Operator Relationship Specialty Start Date End Date Zhanna Kinney MD [address] [place], [place] [phone] PCP - General Family Medicine 02/12/18 documented as of this encounter
--- OUTSIDE RECORDS SUMMARY | 2024-10-16 11:13 | XMS_ITS | Encounter Summary ---
Author Organization [employer] Address [address] [facility] 7t [place] [address] Care Team Providers Care Freezer Assistant Name Role Phone Zhanna Kinney MD Primary Care Provide r Reason for Visit * Reason Onset Date Comments chart prep 10/15/2024 Encounter Details Date Type Department Care Team ([facility] st Contact Info) Description 10/15/2024 Telephone [facility] MEDICINE [address] [place], [place] [phone] Zhanna Kinney MD [address] [place], [place] [phone] chart prep Social History Tobacco Use Types Packs/Day Years Used Date Smoking Tobacco: Every Day Cigarettes Smokeless Tobacco: Never Alcohol Use Standard Drinks/Week Comments Yes 0 (1 standard drink = 0.6 oz pur e alcohol) 2x week Housing Stability Answer Date Recorded What is your housing situation today? I have michelleyo pires 10/16/[address] you li ve. Do you have problems with any of the following? Mold 10/16/2024 Food Insecurity Answer Date Recorded Within the [...] off services in your home? No 11/12/2023 Internet Access Answer Date Recorded Internet Access Q1 No 10/16/2024 Internet Access Q2 I do not want or need it 10/01 Comments No Sex and Gender Information Value Date Recorded Sex Assigned at Female 04/02/2022 10:21 AM EDT Legal Sex Female 10:21 AM EDT Gender Identity Female 04/02/2022 10:21 AM EDT Sexual Orientation Straight 04/02/2022 10 :21 AM EDT documented as of this encounter Miscellaneous Notes * Telephone Encounter - Nancy Mauricio MA - 10/15/2024 11:00 AM EDT Chart Prep Labs: done Images: done Referrals: complete endo appt 11/16/2024 Vaccines due: Covid, Flu, Hep B, and Zoster Screenings: mammogram Overdue care gaps: SDOH, PHQ-9, ALINE-7, Disability screen, and Tobacco documented in this encounter Plan of Treatment Not on file documented as of this encounter Visit Diagnoses Not on filedocumented in this encounter Care Teams Freezer Assistant Relationship Specialty Start Date End Date Zhanna Kinney MD [address] [place] [phone] PCP - General Family Medicine 02/12/18 documented as of this encounter
--- OUTSIDE RECORDS SUMMARY | 2024-10-16 11:13 | XMS_ITS | Encounter Summary ---
Author Organization [employer] Address [address] [facility] 7t [place] [address] Care Team Providers Care Merchandise Appraiser Name Role Phone Zhanna Kinney MD Primary Care Provide r Reason for Visit * Reason Onset Date Comments Med Refill 10/09/2022 Encounter Details Date Type Department Care Team (Late st Contact Info) Description 10/09/2022 Telephone [facility] MEDICINE [address] [place], [place] [phone] Zhanna Kinney MD 230 [place], [place] [phone] Med Refill Social History Tobacco Use Types [...] on filedocumented in this encounter Care Teams Merchandise Appraiser Relationship Specialty Start Date End Date Zhanna Kinney MD [address] [place] [phone] PCP - General Family Medicine 02/12/18 documented as of this encounter
--- OUTSIDE RECORDS SUMMARY | 2024-10-16 11:13 | XMS_ITS | Encounter Summary ---
Author Organization [employer] Address [address] [facility] 7t [place] [address] Care Team Providers Care Service Technician Copier Name Role Phone Zhanna Kinney MD Primary Care Provide r Reason for Referral * Imaging (Routine) - Authorized Specialty Diagnoses / Procedures Referred By Mirta cortez Referred To Contact Radiology Diagnoses Encounter for screening mammogram for malignant neoplasm of breast Procedures BI Mammogram Screening Tomosynthesis Bilateral Zhanna Kinney MD [address] [place] [phone] Phone: tel: fax: [address] Phone: tel: fax: Referral ID Status Reason Start Date Expiration Date V isits Requested Visits Authorized [id number] Authorized 10/16/2024 10/16/2025 1 1 * Consultation (Routine) - Pending Review Specialty Diagnoses / Procedures Referred By Mirta cortez Referred To Contact Pulmonary Disease Diagnoses Severe persistent asthma, unspecified whether complicated Mold exposure Zhanna Kinney MD [address] [place] [address] Phone: tel: fax: Referral ID Status Reason Start Date Expiration Date Visits Requested Visits Authorized [id number] Pending Review Specialty Services Required 10/16/2024 10/16/2025 1 1 Encounter Details Date Type Department Care Team (Late st Contact Info) Description 10/16/2024 10:15 AM EDT Office Visit [facility] MEDICINE [address] [place] [address] Zhanna Kinney MD [address] [place] [address] Allergic sinusitis; Severe persistent asthma, unspecified whether complicated; Mold exposure; Allergy, sequela; Acquired hypothyroidism; Encounter for screening mammogram for malignant neoplasm of breast Social History Tobacco Use Types Packs/Day Years Used Date Smoking Tobacco: Every Day Cigarettes Passive Smoke Exposure: Current Smokeless Tobacco: Never Tobacco Cessation:Ready to Q uit: Not Asked; Counseling Given: Not Answered Alcohol Use Standard Drinks/Week Comments Yes 0 (1 standard drink = 0.6 oz pur e alcohol) 2x week Housing Stability Answer Date Recorded What is your housing situation today? I have michelle pires 10/16/[address] you [...] t he electric, gas, oil or water [employer] threatened to shut off services in your [...] AM EDT documented as of this encounter Last Filed Vital Signs Vital Sign Reading Time Taken Comments Blood Pressure 128/82 10/16/2024 10:07 AM EDT Pulse 91 10/16/2024 10:07 AM EDT Temperature 36.4 ??C (97.6 ??F) 10/16/2024 1 0:07 AM EDT Respiratory Rate 20 10/16/2024 10:0 7 AM EDT Oxygen Saturation - - Inhaled Oxygen Concentration - - Weight 79.7 kg (175 lb 12.8 oz) 025 10:07 AM EDT Height 162.6 cm (5' 4 ) 10/16/2024 10:0 7 AM EDT Body Mass Index 30.18 10/16/2024 10:07 AM EDT documented in this encounter Progress Notes * Zhanna Bonilla MD - 10/16/2024 10:15 AM EDT SUBJECTIVE: Xin Lagunas is a 59 y.o. year old female who presents for Chronic Disease Management . Acute Concerns: Patient reports an inspection was done to her place where she lives, she reports that she bit herself because the landlord did not do it, and they found mold all over the house, patient is worried about this because she thinks her thyroid condition was triggered by the mild where she lives and alsohas made her asthma worse she wanted to be evaluated for this Social History Social History Narrative Not on file Problem List[1] Family History[2] Review of Systems OBJECTIVE: Vitals: 10/16/24 1007 BP: 128/82 BP Location: Left arm Patient Position: Sitting BP Cuff Size: Adult Pulse: 91 Resp: 20 Temp: 97.6 ??F (36.4 ??C) TempSrc: Oral Weight: 175 lb 12.8 oz (79.7 kg) Height: 5' 4 (1.626 m) Physical Exam Constitutional: Appearance: Normal appearance. Cardiovascular: Rate and Rhythm: Normal rate and regular rhythm. Pulmonary: Effort: Pulmonary effort is normal. Breath sounds: Normal breath sounds. Abdominal: General: Abdomen is flat. Palpations: Abdomen is soft. Musculoskeletal: Right lower leg: No edema. Left lower leg: No edema. Neurological: Mental Status: She is alert. Follow Up: Follow up in about 3 months (around 01/16/2025) for chronic conditions . Medications Ordered Prior to Encounter[3] Problem List Items Addressed This Visit Allergic sinusitis Relevant Medications fluticasone (Flonase) 50 MCG/ACT nasal spray loratadine (Claritin) 10 MG tablet Severe persistent asthma Relevant Medications fluticasone (Flonase) 50 MCG/ACT nasal spray loratadine (Claritin) 10 MG tablet Other Relevant Orders Referral to Pulmonology Mold exposure Relevant Orders Referral to Pulmonology Acquired hypothyroidism Relevant Orders TSH W/Reflex to FT4 Encounter for screening mammogram for malignant neoplasm of breast Relevant Orders BI Mammogram Screening Tomosynthesis Bilateral Other Visit Diagnoses Allergy, sequela Relevant Medications loratadine (Claritin) 10 MG tablet [1] Patient Active Problem List Diagnosis Acquired hypothyroidism Familial cancer of breast (CMS/HCC) Moderate chronic obstructive pulmonary disease (CMS/HCC) Nicotine dependence Vitamin D deficiency Bloating Facial swelling Severe persistent asthma Allergic reaction Colon cancer screening Encounter for cervical Pap smear with pelvic exam Allergic sinusitis Mold exposure Encounter for screening mammogram for malignant neoplasm of breast [2] No family history on file. [3] Current Outpatient Medications on File Prior to Visit Medication Sig Dispense Refill albuterol (2.5 MG/3ML) 0.083% nebulizer solution INHALE ONE (1) AMPULE (3ML) USING A NEBULIZER EVERY 8 HOURS IF NEEDED FOR WHEEZING 90 mL 3 albuterol (Ventolin HFA) 108 (90 Base) MCG/ACT inhaler INHALE 2 PUFFS BY MOUTH EVERY 6 HOURS NEEDED FOR WHEEZING 18 g 3 azithromycin (Zithromax Z-Sagar) 250 MG tablet Take 2 tablets (500 mg) in a single loading dose on day 1, followed by 250 mg once daily on days 2 to 5 6 tablet 0 buPROPion SR (Wellbutrin SR) 150 MG 12 hr tablet cetirizine (ZyrTEC) 10 MG tablet TAKE 1 TABLET BY MOUTH EVERY DAY 90 tablet 1 cholecalciferol VITAMIN D (Vitamin D-3) 50 MCG (2000 UT) capsule TAKE ONE CAPSULE BY MOUTH ONCE DAILY IN THE MORNING 90 capsule 1 Combivent Respimat 20-100 MCG/ACT inhaler INHALE 1 PUFF IN THE MORNING, AT NOON, IN THE EVENING, AND AT BEDTIME. 4 g 5 fluticasone furoate (Arnuity Ellipta) 100 MCG/ACT inhaler Inhale 1 puff Once per day. Rinse mouth with water after use to reduce aftertaste and incidence of candidiasis. Do not swallow. 1 each 11 fluticasone furoate (Arnuity Ellipta) 200 MCG/ACT inhaler INHALE 1 PUFF BY MOUTH ONCE A DAY. RINSE MOUTH WITH WATER AFTER USE TO REDUCE AFTERTASTE AND INCIDENCE OF CANDIDIASIS. DO NOT SWALLOW. 1 each3 Fluticasone-Salmeterol 500-50 MCG/ACT aerosol powder lactulose (Chronulac) 10 GM/15ML solution TAKE 15 ML BY MOUTH ONCE DAILY FOR CONSTIPATION 450 mL 1 lactulose (Enulose) 10 GM/15ML solution oral solution TAKE 15 ML BY MOUTH ONCE DAILY FOR CONSTIPATION 450 mL 1 levothyroxine (Synthroid, Levoxyl) 100 MCG tablet TAKE 1 TABLET BY MOUTH EVERY MORNING BEFORE BREAKFAST 90 tablet 1 nicotine (Nicoderm CQ) 21 MG/24HR patch Place 1 patch on the skin 1 (one) time each day at the sametime. 30 patch 0 tiotropium (Spiriva HandiHaler) 18 MCG inhalation capsule INHALE ONE (1) CAPSULE VIA HANDIHALER FORINHALTION ONCE A DAY 30 capsule 5 [DISCONTINUED] loratadine (Claritin) 10 MG tablet Take 1 tablet (10 mg) by mouth in the morning. 90tablet 0 No current facility-administered medications on file prior to visit. documented in this encounter Plan of Treatment Scheduled Orders Name Type Priority Associated Diagnoses Orde r Schedule TSH W/Reflex to FT4 Lab Routine Acquired hypothyroidism Expected: 10/16/2024 (Approximate), Expires: 10/16/2025 BI Mammogram Screening Tomosynthesis Bilateral Imaging Routine Encounter for screening mammogram for malignant neoplasm of breast Expected: 10/16/2024, Expires: 12/16/2025 Scheduled Referrals Name Type Priority Associated Diagnoses Orde r Schedule Referral to Pulmonology Outpatient Referral Routine Severe persistent asthma, unspecified whether complicated Mold exposure Expected: 10/16/2024 (Approximate), Expires: 10/16/2025 documented as of this encounter Visit Diagnoses Diagnosis Allergic sinusitis Severe persistent asthma, unspecified whether complicated Mold exposure Allergy, sequela Acquired hypothyroidism Unspecified hypothyroidism Encounter for screening mammogram for malignant neoplasm of breast documented in this encounter Care Teams Service Technician Copier Relationship Specialty Start Date End Date Zhanna Kinney MD [address] [place] [address] PCP - General Family Medicine 02/12/18 documented as of this encounter
--- OUTSIDE RECORDS SUMMARY | 2024-10-16 11:13 | XMS_ITS | Encounter Summary ---
Author Organization [email or web address] Address [address] [facility] [address] [place] [address] Care Team Providers Care Uniforms Sales Representative Name Role Phone Zhanna Kinney MD Primary Care Provide r Reason for Visit * Reason Comments Med Refill Encounter Details Date Type Department Care Team ([facility] st Contact Info) Description 12/10/2022 Refill [facility] MEDICINE [address] [place], [place] [phone] Zhanna Kinney MD [address] [place], [place] [phone] Social History Tobacco Use Types Packs/Day Years [...] on filedocumented in this encounter Care Teams Uniforms Sales Representative Relationship Specialty Start Date End Date Zhanna Kinney MD [address] [place], [place] [phone] PCP - General Family Medicine 02/12/18 documented as of this encounter
--- OUTSIDE RECORDS SUMMARY | 2024-10-16 11:13 | XMS_ITS | Encounter Summary ---
Author Organization [email or web address] Address [address] [facility] 7t [place] [address] Care Team Providers Care Golf Club Manager Name Role Phone Zhanna Kinney MD Primary Care Provide r Reason for Visit * Reason Comments Med Refill Encounter Details Date Type Department Care Team ([facility] st Contact Info) Description 03/05/2023 Refill [facility] MEDICINE [address] [place], [place] [phone] Zhanna Kinney MD [address] [place], [place] [phone] Social History Tobacco Use Types Packs/Day Years [...] on filedocumented in this encounter Care Teams Golf Club Manager Relationship Specialty Start Date End Date Zhanna Kinney MD [address] [place], [place] [phone] PCP - General Family Medicine 02/12/18 documented as of this encounter
--- OUTSIDE RECORDS SUMMARY | 2024-10-16 11:13 | XMS_ITS | Encounter Summary ---
Author Organization [employer] Address [address] [facility] [address] 7t [place] [address] Care Team Providers Care Trolley Car Operator Name Role Phone Zhanna Kinney MD Primary Care Provide r Encounter Details Date Type Department Care Team (Latest Contact Info) Description 10/16/2024 Travel Social History Tobacco Use Types Packs/Day Years Used Date Smoking Tobacco: Every Day Cigarettes Passive Smoke Exposure: Current Smokeless Tobacco: Never Alcohol Use Standard Drinks/Week [...] on filedocumented in this encounter Care Teams Trolley Car Operator Relationship Specialty Start Date End Date Zhanna Kinney MD [address] [place] [phone] PCP - General Family Medicine 02/12/18 documented as of this encounter
--- OUTSIDE RECORDS SUMMARY | 2024-10-16 11:13 | XMS_ITS | Encounter Summary ---
Author Organization [employer] Address [address] [facility] 7t [place] [address] Care Team Providers Care Interchange Agent Name Role Phone Zhanna Kinney MD Primary Care Provide r Reason for Visit * Reason Onset Date Comments Med Refill 09/10/2023 Encounter Details Date Type Department Care Team (Late st Contact Info) Description 09/10/2023 Telephone [facility] MEDICINE [address] [place], [place] [phone] Zhanna Kinney MD [address] [place], [place] [phone] Med Refill Social History Tobacco Use Types [...] the past 12 months, has t he [employer], [employer], oil or water [employer] threatened to shut off services in your [...] MCG tablet cholecalciferol (Vitamin D-3) 50 MCG (1999 UT) capsule albuterol (2.5 MG/3ML) 0.083% nebulizer solution lactulose (Chronulac) 10 GM/15ML solution To be sent to: [address] documented in this encounter Plan of Treatment Not on file documented as of this encounter Visit Diagnoses Not on filedocumented in this encounter Care Teams Interchange Agent Relationship Specialty Start Date End Date Zhanna Kinney MD [address] [place] [phone] PCP - General Family Medicine 02/12/18 documented as of this encounter
--- OUTSIDE RECORDS SUMMARY | 2024-10-16 11:13 | XMS_ITS | Encounter Summary ---
Author Organization [employer] Address [address] [facility] 7t [place] [address] Care Team Providers Care Mines Inspector Name Role Phone Zhanna Kinney MD Primary Care Provide r Reason for Visit * Reason Onset Date Comments Med Refill 05/06/2023 Encounter Details Date Type Department Care Team ([facility] st Contact Info) Description 05/06/2023 Telephone [facility] MEDICINE [address] [place], [place] [phone] Zhanna Kinney MD [address] [place], [place] [phone] Med Refill Social History Tobacco Use Types [...] the past 12 months, has t he [employer], [employer], oil or water [employer] threatened to shut off services in your [...] MCG (1999) capsule to be sent to [facility] [address] documented in this encounter Plan of Treatment Not on file documented as of this encounter Visit Diagnoses Not on filedocumented in this encounter Care Teams Mines Inspector Relationship Specialty Start Date End Date Zhanna Kinney MD [address] [place] [address] PCP - General Family Medicine 02/12/18 documented as of this encounter
--- OUTSIDE RECORDS SUMMARY | 2024-10-16 11:13 | XMS_ITS | Clinical Summary ---
Author Organization [employer] Address [address] [facility] 7[address] [place] [address] Care Team Providers Care Electrocardiogram Technician Name Role Phone Zhanna Kinney MD Primary [...] 2 to 5 6 tablet 023 Active lactulose (Enulose) 10 GM/15ML [...] not swallow. 1 each 024 2024 Active lactulose (Chronulac) 10 GM/15ML solution TAKE 15 ML BY MOUTH ONCE DAILY FOR CONSTIPATION 450 mL 1 024 Active fluticasone furoate (Arnuity Ellipta) 200 MCG/ACT inhalerIndication s:Moderate chronic obstructive pulmonary disease (CMS/HCC) INHALE 1 PUFF BY MOUTH ONCE A DAY. RINSE MOUTH WITH WATER AFTER USE TO REDUCE AFTERTASTE AND INCIDENCE OF CANDIDIASIS. DO NOT SWALLOW. 1 each 3 025 Active albuterol (Ventolin HFA) 108 (90 Base) MCG/ACT inhalerIndication s:Moderate chronic obstructive pulmonary disease (CMS/HCC) INHALE 2 PUFFS BY MOUTH EVERY 6 HOURS NEEDED FOR WHEEZING 18 g 3 025 Active cetirizine (ZyrTEC) 10 MG tabletIndications :Allergic reaction, initial encounter TAKE 1 TABLET BY MOUTH EVERY DAY 90 tablet 1 025 Active levothyroxine (Synthroid, Levoxyl) 100 MCG tabletIndications :Acquired hypothyroidism TAKE 1 TABLET BY MOUTH EVERY MORNING BEFORE BREAKFAST 90 tablet 1 025 Active cholecalciferol VITAMIN D (Vitamin D-3) 50 MCG (2000 UT) capsule TAKE ONE CAPSULE BY MOUTH ONCE DAILY IN THE MORNING 90 capsule 1 025 Active Combivent Respimat 20-100 MCG/ACT inhalerIndication s:Moderate chronic obstructive pulmonary disease (CMS/HCC) INHALE 1 PUFF IN THE MORNING, AT NOON, IN THE EVENING, AND AT BEDTIME. 4 g 5 025 Active albuterol (2.5 MG/3ML) 0.083% nebulizer solutionIndicatio ns:Moderate chronic obstructive pulmonary disease (CMS/HCC) INHALE ONE (1) AMPULE (3ML) USING A NEBULIZER EVERY 8 HOURS IF NEEDED FOR WHEEZING 90 mL 3 025 Active tiotropium (Spiriva HandiHaler) 18 MCG inhalation capsule INHALE ONE (1) CAPSULE VIA HANDIHALER FOR INHALTION ONCE A DAY 30 capsule 5 025 Active fluticasone (Flonase) 50 MCG/ACT nasal sprayIndications: Allergic sinusitis Administer 1-2 sprays into each nostril Once per day. Shake gently. Before first use, prime pump. After use, clean tip and replace cap. 16 g 2 025 2025 Active loratadine (Claritin) 10 MG tabletIndications :Allergy, sequela Take 1 tablet (10 mg) by mouth Once per day. 90 tablet 1 025 Active loratadine (Claritin) 10 MG tabletIndications :Allergy, sequela Take 1 tablet (10 mg) by mouth in the morning. 90 tablet 023 2024 Discontinued(R eorder (will not trigger notification to Pharmacy)) tiotropium (Spiriva HandiHaler) 18 MCG inhalation capsule INHALE ONE (1) CAPSULE VIA HANDIHALER FOR INHALTION ONCE A DAY 30 capsule 5 024 2024 Discontinued albuterol (2.5 MG/3ML) 0.083% nebulizer solutionIndicatio ns:Moderate chronic obstructive pulmonary disease (CMS/HCC) INHALE ONE (1) AMPULE (3ML) USING A NEBULIZER EVERY 8 HOURS IF NEEDED FOR WHEEZING 90 mL 3 025 2024 Discontinued Active Problems Problem Noted Date Diagnosed Date Allergic sinusitis 10/16/2024 Mold exposure 10/16/2024 Encounter for screening mamm ogram for malignant neoplasm of breast 10/16/2024 Encounter for cervical Pap smear with pelvic [...] Encounters Date Type Department Care Team Description 10/16/2024 10:15 AM EDT Office Visit [facility] [address] [place] [phone] Zhanna Kinney MD Allergic sinusitis; Severe persistent asthma, unspecified whether complicated; Mold exposure; Allergy, sequela; Acquired hypothyroidism; Encounter for screening mammogram for malignant neoplasm of breast 10/16/2024 Travel 10/15/2024 Telephone [facility] [address] [place] [phone] Zhanna Kinney MD chart prep 10/05/2024 Refill [facility] [address] [place] [phone] Zhanna Kinney MD Moderate chronic obstructive pulmonary disease (CMS/HCC) 09/10/[address] [phone] Zhanna Kinney MD Appointment Request 08/14/2024 Population Health Risk Score [facility] () Department [address] [place] [phone] Provider, Population Health Generic 08/11/2024 Refill [facility] [address] [place] [phone] Zhanna Kinney MD Allergic reaction, initial encounter; Acquired hypothyroidism; Moderate chronic obstructive pulmonary disease (CMS/HCC) 07/20/2024 Refill [facility] [address] [place] [phone] Zhanna Kinney MD Moderate chronic obstructive pulmonary disease (CMS/HCC) from Last 3 Months Immunizations Immunization Administration Dates Next Due Pneumococcal Conjugate PCV [...] 10/16/2024 10:0 7 AM EDT Oxygen Saturation 97% 03/03/2024 10: 36 AM EDT Inhaled Oxygen Concentration - - Weight 79.7 kg (175 lb 12.8 oz) 025 10:07 AM EDT Height 162.6 cm (5' 4 ) 10/16/2024 10:0 7 AM EDT Body Mass Index 30.18 10/16/2024 10:07 AM EDT Plan of Treatment Health Maintenance Due Date Last Done Comments CT Colonography 1966 Colonoscopy 1966 Depression Screening 1966 FIT 1966 FOBT 1966 Sigmoidoscopy 1966 Alcohol/Substance Use Screening 1978 Hepatitis B Vaccines (1 of 3 - 19+ 3-dose series) 1985 DTaP/Tdap/Td Vaccines (1 - Tdap) 06/04/2002 06/03/2002 Zoster Vaccines (1 of 2) 2016 Mammogram 12/07/2022 12/07/2021 COVID-19 Vaccine (1 - 2023-2 5 season) 2024 Influenza Vaccine (#1) 2024 SDOH Screening 10/16/2025 10/16/2024 Tobacco Screening 10/16/2025 10/16/2024 Lipid Panel 11/30/2026 11/30/2021, 07/29/2020 Colorectal Cancer Screening 04/08/2027 FIT DNA/Cologuard 04/08/2027 04/08/2024 Cervical Cancer Screening 03/03/2029 HPV/Cotest 03/03/2029 03/03/2024 Pap Smear 03/03/2029 03/03/2024 RSV Patients and Patients Aged 60 years or older (1 - 1-dose 75+ series) 2041 HIV Screening Completed 07/29/2020 Hepatitis C Screening Completed 07/29/2020 Pneumococcal Vaccine: 50+ Years Completed 01/03/2024 HIB Vaccines Aged Out No [...] patient's age to complete this topic Meningococcal B Vaccine Aged Out No l onger eligible based on patient's age to complete [...] Procedure Name Priority Date/Time Associated Diagnosis Comments LAB COLOGUARD?? COLON CANCER SCREEN Routine 04/08/2024 8:24 AM EST Colon cancer screening [facility] PAP AND HPV MRNA E6/E7 Routine 03/03/2024 12:00 AM EDT MAMMOGRAM GENERIC Routine 12/07/2021 11: 54 AM EDT LIPID PANEL, STANDARD Routine 11/30/2021 10:56 AM EDT ZZZ HISTORICAL HEPATITIS C AB W/REFL TO HCV RNA, QN, PCR Routine 07/29/2020 8:41 AM EST HIV 1/2 ANTIGEN/ANTIBODY, FOURTH GENERATION W/RFL Routine 07/29/2020 8:41 AM EST from Last 3 Months or Most Recently Relevant to Health Maintenance Results * Cologuard?? colon cancer screening (04/08/2024 8:24 AM EST) Cologuard Result Negative Negative 04/21/20 5:47 PM EST [facility] (CLIA #:[id number]) Comment: NEGATIVE TEST RESULT. A negative Cologuard [...] screened with both Cologuard and colonoscopy. (Ava An al, N Engl J Med 2014;370(14):1286- 1297) The normal value (reference range) for this assay is negative. COLOGUARD RE-SCREENING RECOMMENDATION: Periodic colorectal cancer screening is an important part of preventive healthcare for asymptomatic individuals at average risk for colorectal cancer. ??Following a negative Cologuard result, the [place] Cancer Society and U.S. Multi-Society Task Force screening guidelines recommend a Cologuard re-screening interval of 3 years. References: [place] Cancer Society Guideline for Colorectal Cancer Screening: https://www.cancer.org/cancer/sgvts-hacgcg-oaywgq/ltkguazfx-jvpqemuer-semfddm/ac s-rec ommendations.html.; Honorio DK, Fabiana WARREN, Ellis EscobarK, Colorectal Cancer Screening: Recommendations for Physicians and Patients from the U.S. Multi-Society Task Force on Colorectal Cancer Screening , Am J Gastroenterology 2017; 112:6516-3059. TEST DESCRIPTION: Composite algorithmic analysis of stool [...] screened with both Cologuard and colonoscopy. (Ava An al, N Engl J Med 2014;370(14):9824-1392.) Cologuard may produce a false negative or false positive result (no colorectal cancer or precancerous polyp present at colonoscopy follow up). A negative Cologuard test result does not guarantee the absence of CRC or advanced adenoma (pre-cancer). The current Cologuard screening interval is every 3 years. ([place] Cancer Society and U.S. Multi-Society Task Force). Cologuard performance data in a 10,000 patient pivotal study using colonoscopy as the reference method can be accessed at the following location: www.[employer].Stringbike/results. Additional description of the Cologuard test process, warnings and precautions can be found at www.colAridhia Informaticsrd.com. Stool specimen (specimen) 04/08/2024 8:24 AM EST 04/10/2024 10:38 AM EST Zhanna Bonilla MD LAB MOLECULAR DIAGNOS TICS ORDERABLES Final Result [facility] (CLIA #:[id number]) [place] [address], [place] [phone] * ThinPrep Imaging Pap and HPV mRNA E6/E7 (03/03/2024 12:00 AM EDT) HPV nRNA E6/E7 Not Detected Not Detected [facility] Comment:Methodology: Transcr iption-Mediated AmplificationThis assay detects E6/E7 viral messenger RNA (mRNA) from 14high-risk HPV types (16,18,31,33,35,39,45,51,52,56,58,59,66,68).Cervical sources are required for HPV testing.If a vaginal source from a patient who has had atotal hysterectomy with removal of cervix wassubmitted, please contact the testing laboratoryfor alternative testing options.For additional information, please refer tohttp://education.Fixya.Stringbike/faq/HWN487w1(This link if provided for information/educational purposes only.)THIS TEST WAS PERFORMED AT:[employer] [place] [phone] SNOW MD SOURCE: SEE NOTE [facility] Comment:None given Report Status: TNP [facility] Clinical Information: SEE NOTE [facility] Comment:None given LMP: SEE NOTE [facility] Comment:NONE GIVEN Prev. PAP: SEE NOTE [facility] Comment:NONE GIVEN Prev. BX: SEE NOTE [facility] Comment:NONE GIVEN Statement Of Adequacy: SEE NOTE [facility] Comment:Satisfactory for olivre luation.Endocervical/transformation zone component absent. General Categorization: [facility] Interpretation/Result: SEE NOTE [facility] Comment:Cytology Results: Ne gative for intraepitheliallesion or malignancy. Cytology Comment SEE NOTE [facility] Comment:This Pap test has be en evaluated with computerassisted technology. Inorganic Chemistry Professor: SEE NOTE [facility] Comment:GSG, CT(ASCP)CT scre ening location: [address] [address] Review Inorganic Chemistry Professor: [facility] Pathologist [facility] PAP Infection [facility] See Note SEE NOTE [facility] Comment:EXPLANATORY NOTE:The Pap is a screening test for cervical cancer. It isnot a diagnostic test and is subject to false negativeand false positive results. It is most reliable when asatisfactory sample, regularly obtained, is submittedwith relevant clinical findings and history, and whenthe Pap result is evaluated along with historic andcurrent clinical information. 03/03/2024 03/03/2024 Narrative [facility] - 03/06/2024 1:54 PM EDT SEE SCANNED RESULTS IN EMR us Zhanna Bonilla MD LAB PATHOLOGY ORDERAB LES Final Result [facility] [address] [place] [phone] * Mammography Report 1 (12/07/2021 11:54 AM EDT) Anatomical Region Laterality Modality Breast Bilateral Mammography 12/07/2021 11:5 4 AM EDT Narrative 12/11/2021 8:34 AM EDT Refer to the Notes tab for result details [facility] Procedure: Mammography Report 1 Procedure Note ProviderNikolay MD - 08/26/2022 Refer to the Notes tab for result details [facility] Procedure: Mammography Report 1 us Evelio Aponte MD IMG BI PROCEDURES Final Result * (ABNORMAL) LIPID PANEL, STANDARD (11/30/2021 10:56 [...] Doron FLORES et al. ANGEL LUIS. 2013;310(19): 8504-0053 ?? (http://education.Skillset.Stringbike/faq/JUD393) Non-HDL Cholesterol 161(H) <130 mg/dL (calc) [facility] Comment: For patients with diabetes plus 1 major ASCVD risk ?? factor, treating to a non-HDL-C goal of <100 mg/dL ?? (LDL-C of <70 mg/dL) is considered a therapeutic ?? option. Triglycerides 62 <150 mg/dL [facility] 11/30/2021 10:5 6 AM EDT Zhanna Bonilla MD LAB BLOOD ORDERABLES Final Result [facility] [address] * HEPATITIS C AB W/REFL TO HCV RNA, QN, PCR (07/29/2020 8:41 AM EST) Pathologist [facility] HEPATITIS C ANTIBODY NON-REACT ZOFIA NON-REACT ZOFIA [facility] INDEX 0.01 <1.00 [facility] Comment: ?? HCV antibody was non-reactive. There is no laboratory ?? evidence of HCV infection. ?? In most cases, no further action is required. However, if recent HCV exposure is suspected, a test for HCV RNA (test code 18517) is suggested. ?? For additional information please refer to http://[employer] Pharmaceuticals/faq/ERS70m7 (This link is being provided for informational/ educational purposes only.) ?? 07/29/2020 8:41 AM EST Zhanna Bonilla MD HISTORICAL/NON ORDERA BLE LABS Final Result Performing Organization Address [facility] Phone Number [facility] [address] * HIV 1/2 ANTIGEN/ANTIBODY,FOURTH GENERATION W/RFL (07/29/2020 8:41 AM EST) [facility] HIV-1/2 ANTIGEN AND ANTIBODIES, 4TH GENERATION W/ REFLEX NON-REACT ZOFIA NON-REACT ZOFIA [facility] Comment: HIV-1 antigen and HIV-1/HIV-2 [...] ? For additional information please refer to http://[employer] Now.[employer]aceuticals/faq/WUA537 (This link is being provided for informational/ educational purposes only.) ? The performance of this assay has not been clinically validated in patients less than 2 years old. ?? 07/29/2020 8:41 AM EST us Zhanna Bonilla MD LAB BLOOD ORDERABLES Final Result Performing Organization Address [facility] Phone Number [facility] [address] from Last 3 Months or Most Recently Relevant to Health Maintenance [place] [address] C3 HSN PARTIAL Care Teams Electrocardiogram Technician Relationship Specialty Start Date End Date Zhanna Kinney MD [address] [place] [phone] PCP - General Family Medicine 02/12/18
[2024-10-16 14:08] LABS: TSH reflex Free T4 0.97 uIU/mL (0.32-4.0)
== END 2024-10-16 10:41 | disposition home or self-care (01) ==
LOC: HO.HHCL 10:40
PROVIDERS: Visit Provider Internal Medicine
DX: E03.9 Hypothyroidism, unspecified (principal)
CPT/HCPCS: 36415; 84443

== ENCOUNTER 2024-11-23 12:56 | Outpatient (REF) | payer MEDICAID, SELFPAY ==
--- NOTE | ~2024-11-23 | MM_ITS ---
EXAMINATION: MM SCREENING DIGITAL BREAST TOMOSYNTHESIS, BILATERAL CLINICAL INFORMATION: Screening. Asymptomatic. COMPARISON: Mammography: Comparison is made with available priors TECHNIQUE: Digital breast mammography with tomosynthesis is performed in both the craniocaudal and mediolateral oblique views along with computer-aided detection (CAD). FINDINGS: There are scattered areas of fibroglandular density (ACR BI-RADS breast composition Category b). There are no significant masses, abnormal calcifications, or other abnormalities. MM/MM tomosynthesis screening BI IMPRESSION: No mammographic evidence of malignancy. ASSESSMENT: BI-RADS BI-RADS 1 - Negative RECOMMENDATION: Routine annual mammography screening. 1 year F/U This examination should not preclude the clinical evaluation of a suspicious palpable abnormality. This patient's information was entered into a reminder system with a target due date for their next mammogram. Electronically signed by: Sola Arango DO 11/27/2024 03:06 PM EDT
--- OUTSIDE RECORDS SUMMARY | 2024-11-23 14:16 | XMS_ITS | Encounter Summary ---
Author Organization [employer] Address [address] [facility] 7t [place] [address] Care Team Providers Care Motion Picture Projectionist Name Role Phone Zhanna Kinney MD Primary Care Provide r Reason for Visit * Reason Onset Date Comments Med Refill 09/10/2023 Encounter Details Date Type Department Care Team ([facility] st Contact Info) Description 09/10/2023 Telephone [facility] [address] [place], [place] [phone] Zhanna Kinney MD [address] [place], [place] [phone] Med Refill Social History Tobacco Use Types [...] the past 12 months, has t he [employer], oil or water [employer] threatened to shut off services in your [...] 10 GM/15ML solution To be sent to: [address] documented in this encounter Plan of Treatment Upcoming Encounters Date Type Department Care Team (Late st Contact Info) Description 01/18/2025 11:30 AM EDT Office Visit [facility] [address] [place] [address] Zhanna Kinney MD [address] [place] [address] documented as of this encounter Visit Diagnoses Not on filedocumented in this encounter Care Teams Motion Picture Projectionist Relationship Specialty Start Date End Date Zhanna Kinney MD [address] [place] [phone] PCP - General Family Medicine 02/12/18 documented as of this encounter
== END 2024-11-23 12:57 | disposition home or self-care (01) ==
LOC: HO.MAMMO 12:56
PROVIDERS: PCP Internal Medicine; Visit Provider Internal Medicine
DX: Z12.31 Encounter for screening mammogram for malignant neoplasm of breast (principal)
CPT/HCPCS: 77063; 77067

== ENCOUNTER → 2024-11-23 13:00 | Outpatient (BNV) | payer MEDICAID, SELFPAY | PROVIDERS: PCP Internal Medicine; Visit Provider Internal Medicine | DX: Z12.31 Encounter for screening mammogram for malignant neoplasm of breast (principal) | CPT/HCPCS: 77063; 77067 ==

== ENCOUNTER 2024-11-25 13:54 | Outpatient (AMB) | payer MEDICAID, SELFPAY ==
[2024-11-25 13:59] VITALS: BP 120/62; PULSE 94; O2SAT 117; BMI 30.6
--- NOTE | 2024-11-25 13:59 | MHC.OFFVIS ---
Vital Signs 11/25/24 13:59 Height 5 ft 3.5 in Weight 175 lb 4.28 oz BMI 30.6 BP 120/62 Blood Pressure Location Lt brachial Position Sitting Pulse 94 Pulse Source Pulse Oximeter Pulse Oximetry (%) 117 H Oxygen Delivery Method Room Air Intake Visit Reasons: Asthma/Mold Exposure Intake Note: pt is here for a follow up from 2021, she is exposed to mold in her apartment, and she states she is feeling coughing and every morning she gets up with a lot of phelgm. white, thick phelgm Care Management Coordinator Required: No Allergies No Known Allergies Allergy (Verified 11/25/24 14:44) Medication List - Last Reconciled 11/25/24 by Fuentes Santiago MD albuterol sulfate 90 mcg/actuation 2 puffs inhalation Q6H PRN albuterol sulfate 2.5 mg inhalation Q4-6H PRN COVID-19 antigen test ([employer] COVID-19 Antigen Home Test kit) As directed ergocalciferol (vitamin D2) (Vitamin D2) 1,250 mcg PO QWEEK fluticasone furoate 100 mcg/actuation (Arnuity Ellipta) 1 inh inhalation DAILY ipratropium-albuterol 20-100 mcg/actuation (Combivent Respimat) 1 puff inhalation Q6H PRN lactulose mL PO levothyroxine 88 mcg PO DAILY polyethylene glycol 3350 (Miralax) 17 grams PO DAILY Do you need a note to return to daycare/school/sports/work: No HPI HPI Asthma/Mold Exposure: Details: This 59 years old female is referred for pulmonary evaluation and management. It should be noted that she was seen by me in 2021 for the same reason. She never came back for follow-up. Today she presents with her main complaint of being exposed to molds in her apartment. She also has multiple nonpulmonary complaints such as puffiness of her face when she wakes up in the morning, fluid retention, swelling of the feet , concern about thyroid, and concern about the hard. When I talked to her about shortness of breath she claims that she does not have much shortness of breath unless she is going up hill or climbing stairs, or when she is exposed to the mold. She does have mild to moderate amount of cough especially in the morning and she say is I bring up some fluid. .She denies any wheezing attacks Currently she is using Arnuity-101 inhalation daily, Combivent Respimat 1 inhalation Q 6 hours but she does not use it regularly. She also has albuterol HFA to use 2 puffs Q 4-6 hours p.r.n.. Back in 2021 she was smoking 1 pack a day and now she claims that she has cut down to half pack a day. She is participating in annual lung screening program. [facility] Medical History Hypothyroidism COPD (chronic obstructive pulmonary disease) GERD (gastroesophageal reflux disease) Nicotine dependence, cigarettes, uncomplicated Pre-diabetes Family History Father Liver cancer Maternal Aunt Breast CA Social History Household Members: Unknown / Unable to assess Alcohol intake: current Patient Tobacco Use Status: Current everyday Tobacco user Cigarette Packs Per Day: 0.5 Cigarettes Per Day: 10 Review of Systems Const All systems reviewed & are unremarkable except as noted in HPI and below Eyes Reports no additional complaints ENT Reports nasal congestion (Mild off and on) Card Denies chest pain, Denies irregular heart rhythm and Denies leg edema Resp Reports as per HPI GI Reports heartburn (GERD symptoms off and on) Reports no additional complaints Musc Reports no additional complaints Skin/Breast Reports system reviewed and no additional complaints, except as documented Neuro Reports no additional complaints Psych Reports anxiety Endo Reports no additional complaints Miguel/Lymph Reports no additional complaints Aller/Immun Reports no additional complaints Physical Exam Vital Signs: Last Vital Signs Pulse 94 11/25/24 13:59 BP 120/62 11/25/24 13:59 Pulse Ox 117 H 11/25/24 13:59 Oxygen Delivery Method Room Air 11/25/24 13:59 BMI result Body Mass Index 30.6 Const General: comfortable, no acute distress, alert and awake Orientation/consciousness: patient oriented x3 HEENT Head: Yes normal to inspection General nose exam: No nasal polyps present and No nasal discharge present Face and sinus: Yes sinuses nontender Mouth: oropharynx normal Throat: Yes posterior oropharynx normal Eyes General: appearance normal, both eyes and all related structures Neck Neck: Yes normal visual inspection, Yes no lymphadenopathy, Yes trachea midline and Yes no JVD Thyroid: Thyroid normal Chest Chest palpation & inspection: normal inspection of the chest, normal palpation of entire chest wall and no tenderness Resp Other: Percussion note is resonant, breath sounds are distant with prolonged Expiratory phase She does not have any crepitations or wheezes on auscultation . Cardio Palpation: normal PMI Rate: regular rate Rhythm: regular rhythm Heart sounds: no gallops and no murmurs Peripheral pulses: Peripheral pulses 2+ throughout GI Palpation (GI): Soft to palpation, nontender, No hepatosplenomegaly present and no masses Auscultation: normal bowel sounds Back/Spine/Pelvis Thoracic/Lumbar Spine: thoracic and lumbar spine normal to inspection Skin General skin exam: no rashes or lesions noted Neuro General: patient oriented x3 and no focal motor deficits Cranial nerves: Yes CN's II-XII intact bilaterally Extrem General: Yes normal to inspection, Yes no clubbing, cyanosis or edema and Yes no calf tenderness Psych Appearance: grossly normal and well kempt Speech and movement: Normal speech and movement present Office Procedures Spirometry Testing Spirometry Comments: Spirometry done in the office. Dr. Santiago has the results results scanned to her chart. 18094- Spirometry Results Reviewed Results Reviewed: I reviewed with her the findings of pulmonary function test in 2021, c/w moderately severe obstructive airway disorder. SPIROMETRY PERFORMED IN THE OFFICE TODAY : FVC= 66 % FEV1= 48 % FEF 25- 75 = 30 % LDCT OF CHEST 1. Mild centrilobular emphysema. No active lung disease. 2. Stable scattered 2 to 3 mm pulmonary nodules. No suspicious, new, or enlarging pulmonary nodules. Chance of malignancy less than 1%. 3. Diffuse small airway thickening suggesting chronic bronchitis. 4. Small hiatus hernia, type I. 5. Additional ancillary findings as discussed in the body of the report. Assessment & Plan Assessment & Plan (1) Nicotine dependence, cigarettes, uncomplicated: Comment: (current smoker - onset 15yo, 1ppd x 43yrs, 40pyh) , CLAIMS THAT NOW SHE SMOKES ONLY HALF PACK OF CIGARETTES A DAY. Code(s): F17.210 - Nicotine dependence, cigarettes, uncomplicated Category: Medical Plan: I DID TALK TO HER VERY FRANKLY AND TOLD HER THAT SHE HAS ADVANCED COPD, THIS IS BASICALLY IS SECONDARY TO HER SMOKING. SHE NEEDS TO QUIT SMOKING. SHE CLAIMS THAT SHE IS CUTTING DOWN THE CIGARETTES WITH THE GOAL TO STOP. (2) COPD (chronic obstructive pulmonary disease): Comment: (Severe COPD, due to her long-time smoking, Symptoms of cough and shortness of breath on exertion are proportionate to the degree of her COPD. She is more focused on the subject of molds. Code(s): J44.9 - Chronic obstructive pulmonary disease, unspecified Category: Medical Plan: I explained to her that exposure to the molds is 1 of the many triggers which can aggravate symptoms of COPD. She should look for a new living place where there is no dust or mold. Current medical regimen for her COPD , seems to be appropriate. Arnuity-100 1 inhalation daily. Combivent Respimat 1 inhalation Q 6 hours while awake Albuterol HFA 2 puffs Q 4-6 hours p.r.n. The best mode of treatment is to quit smoking . Continue to go for low-dose CT scan of the chest on annual basis . I offered her that if she wants to come for follow-up every 3-4 months she is welcome to make appointment, otherwise continue regular followups with primary care physician Patient was more focused on question of thyroid disease, question of heart disease, question of puffiness of the face especially in the morning and fluid retention. I did tell her that I do not see any evidence of these things at this time. I checked TSH level being in normal range on 06/26/2024 and on 10/16/2024. I did tell her that she needs to make regular appointments with her PCP and discuss these issues with him/her Orders: Orders AMB Spirometry Testing Today J44.9 - Chronic obstructive pulmonary disease, unspecified Coding Level of Care Code Est Pt Level 4 (58653) Diagnoses Nicotine dependence, cigarettes, uncomplicated F17.210 COPD (chronic obstructive pulmonary disease) J44.9 CPT Codes Spirometry - CPT: 79153- Spirometry ([id number])
--- OUTSIDE RECORDS SUMMARY | 2024-11-25 16:38 | XMS_ITS | Encounter Summary ---
Author Organization [employer] Address [address] [place] [address] Care Team Providers Care Explosives Detonator Name Role Phone Zhanna Kinney MD Primary Care Provide r Reason for Visit * Reason Onset Date Comments Med Refill 09/10/2023 Encounter Details Date Type Department Care Team ([facility] st Contact Info) Description 09/10/2023 Telephone [facility] MEDICINE [address], [place] [phone] Zhanna Kinney MD [address], [place] [phone] Med Refill Social History Tobacco Use Types [...] the past 12 months, has t he [employer], [employer], oil or water [employer] threatened to shut off services in your [...] 10 GM/15ML solution To be sent to: [address] documented in this encounter Plan of Treatment Upcoming Encounters Date Type Department Care Team (Late st Contact Info) Description 01/18/2025 11:30 AM EDT Office Visit [facility] MEDICINE [address] [place] [phone] Zhanna Kinney MD [address] [place] [address] documented as of this encounter Visit Diagnoses Not on filedocumented in this encounter Care Teams Explosives Detonator Relationship Specialty Start Date End Date Zhanna Kinney MD [address] [place] [address] PCP - General Family Medicine 02/12/18 documented as of this encounter
== END 2024-11-25 14:44 | disposition home or self-care (01) ==
LOC: HO.HPS 13:56
PROVIDERS: PCP Internal Medicine; Referring Provider Internal Medicine; Visit Provider Internal Medicine
DX: F17.210 Nicotine dependence, cigarettes, uncomplicated (principal); J44.9 Chronic obstructive pulmonary disease, unspecified
CPT/HCPCS: 94010; 99214

== ENCOUNTER → 2024-11-25 13:54 | Outpatient (BNVA) | payer MEDICAID, SELFPAY | PROVIDERS: PCP Internal Medicine; Referring Provider Internal Medicine; Visit Provider Internal Medicine | DX: F17.210 Nicotine dependence, cigarettes, uncomplicated (principal); J44.9 Chronic obstructive pulmonary disease, unspecified; R05.9 Cough, unspecified; Z77.120 Contact with and (suspected) exposure to mold (toxic) | CPT/HCPCS: 94010; 99212 ==